=== PATIENT | male | born 1955 | race Caucasian/White ===

== ENCOUNTER → 2020-01-22 11:00 | Outpatient (BNVA) | payer MEDICARE, SELFPAY | PROVIDERS: Family Provider Family Medicine; PCP Family Medicine; Visit Provider Family Medicine | DX: I10 Essential (primary) hypertension (principal); E11.9 Type 2 diabetes mellitus without complications; L25.5 Unspecified contact dermatitis due to plants, except food | CPT/HCPCS: 80048; 83036 ==

== ENCOUNTER → 2021-01-20 09:50 | Outpatient (BNVA) | payer MEDICARE, SELFPAY | PROVIDERS: Family Provider Family Medicine; PCP Family Medicine; Visit Provider Nurse Practitioner Family | DX: E11.9 Type 2 diabetes mellitus without complications (principal); I10 Essential (primary) hypertension; Z13.6 Encounter for screening for cardiovascular disorders; E55.9 Vitamin D deficiency, unspecified | CPT/HCPCS: 80053; 80061; 82306; 83036; 84443 ==

== ENCOUNTER → 2022-04-13 11:38 | Outpatient (BNVA) | payer MEDICARE, SELFPAY | PROVIDERS: Family Provider Family Medicine; PCP Family Medicine; Visit Provider Nurse Practitioner | DX: I10 Essential (primary) hypertension (principal); E11.9 Type 2 diabetes mellitus without complications; E55.9 Vitamin D deficiency, unspecified | CPT/HCPCS: 80053; 80061; 83036; 84443; 85025 ==

== ENCOUNTER 2022-06-13 14:56 | Inpatient (IN) | payer MEDICARE, SELFPAY ==
[2022-06-13] VITALS (35 sets, daily range): BP systolic 93–136; BP diastolic 60–90; PULSE 76–122; RESP 15–35; TEMP 36.6–36.8; O2SAT 91–96; BMI 25.8
--- NOTE | 2022-06-13 15:02 | XRR_ITS ---
PROCEDURE INFORMATION: Exam: XR Chest Exam date and time: 06/13/2022 3:05 PM Age: 67 years old Clinical indication: Pain; Chest pressure; Additional info: Cp TECHNIQUE: Imaging protocol: Radiologic exam of the chest. Views: 1 view. COMPARISON: No relevant prior studies available. FINDINGS: Lungs: No consolidation. Pleural spaces: Unremarkable. No pleural effusion. No pneumothorax. Heart/Mediastinum: No cardiomegaly. Bones/joints: No acute findings. XR/XR chest 1V portable [id number] IMPRESSION: No acute findings.
--- NOTE | 2022-06-13 15:03 | ECG_ITS ---
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 Measurements Intervals Trevor Rate: 121 P: 53 WY: 156 QRS: -17 QRSD: 101 T: 78 QT: 329 QTc: 468 Interpretive Statements SINUS TACHYCARDIA NONSPECIFIC ST & T-WAVE ABNORMALITY INTERPRETATION BASED ON A DEFAULT AGE OF 40 YEARS No previous ECG available for comparison Electronically Signed On 06-14-2022 8:08:59 CDT by Aiden Thayer M.D. [email or web address]
--- NOTE | 2022-06-13 15:08 | W.ED.CHESTPA ---
HPI - Chest Pain General: Chief Complaint: Arrhythmia/Palpitations Stated Complaint: n/v, stemi alert Time Seen by Provider: 06/13/22 14:58 Source: patient and EMS Mode of arrival: EMS Limitations: no limitations History of Present Illness: This patient was transported to the emergency department by EMS. They were called to the scene by the family. The patient apparently was riding with family and became very nauseated and diaphoretic and lightheaded. He denied chest pain, shortness of breath. He denied headache or any neurologic symptoms at the time. Does have a history of diabetes and hypertension. He has no known history of coronary artery disease. Prior to arrival EMS completed twelve-lead EKG and transmitted that for review. They also given 324 mg of aspirin. He also received Zofran prior to arrival because of nausea. At arrival he states he has no chest pain and has no nausea at this time. He denies other constitutional complaints currently. Onset: during rest Associated symptoms: Reports diaphoresis and nausea; Deny abdominal pain, dyspnea, fever(s), palpitations, syncope or vomiting Treatment prior to arrival: aspirin and oxygen Risk Factors: Coronary artery disease risk factors: diabetes, smoking history and hypertension Review of Systems Const: Reports: diaphoresis; Denies: fever(s) or chills Eyes: Reports: blurry vision ENMT: Denies: throat pain, odynophagia, nasal discharge or nasal congestion Card: Reports: lightheadedness; Denies: chest pain, palpitations, irregular heart rhythm, edema, swelling of feet/ankles or syncope Resp: Denies: dyspnea, productive cough or non-productive cough GI: Reports: nausea; Denies: abdominal pain or vomiting : Denies: flank pain, difficulty urinating, dysuria or urinary frequency Musc: Denies: neck pain, back pain, extremity pain or extremity swelling Skin/Breast: Denies: rash or skin tenderness Neuro: Denies: headache(s), numbness in extremities, weakness in extremities, lack of coordination, dizziness, vertigo, confusion or Slurred speech present Psych: Denies: anxiety or depression Endo: Denies: polyuria or polydipsia Jorge/Lymph: Denies: easy bruising or easy bleeding [facility] PFSH: Medical History Hypertension Type 2 diabetes mellitus Social History Smoking and tobacco status: current every day smoker Alcohol intake: never Physical Exam Narrative: EXAM NARRATIVE: The patient is alert no acute distress. He makes good eye contact. Speaks in goal-directed sentences. Const: COMMON NORMALS: no acute distress, patient oriented x3 and healthy appearing GENERAL APPEARANCE: cooperative and comfortable HENMT: COMMON NORMALS: normocephalic, atraumatic, moist oral mucous membranes and oropharynx normal HEAD & SCALP: normocephalic and atraumatic FACE & SINUS: normal facial exam Eye: COMMON NORMALS: Equal, round and reactive pupils present, EOMs intact bilaterally and conjunctivae normal CONJUNCTIVA: Yes conjunctivae normal PUPIL: Yes Equal, round and reactive pupils present Neck/C-Spine: COMMON NORMALS: full ROM, no lymphadenopathy, no JVD, Thyroid normal and No carotid bruits THYROID: Thyroid normal Lymph: LYMPHATIC: no lymphadenopathy noted Chest: COMMONS NORMALS: normal inspection of the chest and normal palpation of entire chest wall Resp: COMMON NORMALS: normal respiratory effort, No retractions, No use of accessory muscles and clear to auscultation bilaterally EFFORT & INSPECTION: Yes able to speak in complete sentences AUSCULTATION: clear to auscultation bilaterally Cardio: COMMON NORMALS: no JVD, regular rate, regular rhythm, No murmurs present (Cardio) and Peripheral pulses 2+ throughout RATE: regular rate RHYTHM: regular rhythm PERIPHERAL PULSES: Peripheral pulses 2+ throughout GI: COMMON NORMALS: Normal to inspection, nondistended, normoactive bowel sounds present, Soft to palpation, non-tender and No hepatosplenomegaly present PALPATION: Yes Soft to palpation and Yes No hepatosplenomegaly present : COMMON NORMALS: Yes no CVA tenderness BLADDER/KIDNEY EXAM: Yes no CVA tenderness Back/Pelvis: COMMON NORMALS: no CVA tenderness, thoracic and lumbar spine normal to inspection, no thoracic nor lumbar tenderness and thoraco-lumbar ROM normal Extremity: COMMON NORMALS: normal to inspection, capillary refill normal, no calf tenderness and no pedal edema Neuro: COMMON NORMALS: patient oriented x3, moves all extremities, no focal motor deficits, no sensory deficits noted and deep tendon reflexes 2+ bilaterally SPEECH: speech normal Psych: COMMON NORMALS: mental status grossly normal and cooperative Skin: COMMON NORMALS: no rashes or lesions noted, no wounds, turgor normal and no jaundice GENERAL SKIN EXAM: no rashes or lesions noted and turgor normal Course ED course: Cardiology was notified prior to arrival. They arrived almost immediately after the patient arrived to the emergency department. A twelve-lead EKG was performed which showed some ST elevation in aVR as well as leads V1 and V2. No other acute changes noted at this time. No prior tracings available for review. Cardiology interviewed the patient reviewed tracings and discussed risks and benefits with the patient and it was decided that the patient would proceed to coronary angiogram to ensure that there was no obstructive coronary thrombus. Vital Signs: Vital signs: Vital Signs Temperature 98.2 F 06/13/22 14:57 Pulse Rate 122 H 06/13/22 14:57 Respiratory Rate 18 06/13/22 14:57 Blood Pressure 136/88 06/13/22 14:57 Pulse Oximetry 91 06/13/22 14:57 MDM - Chest Pain Medical Decision Making Patient with significant risk factors who presented with potentially angina equivalent symptoms with ST elevations in anterior leads suggestive of possible acute ST elevation [place]. Cardiology was consulted and decided to take to Apiculture Teacher for coronary angiogram. Stable at the time of transfer. Lab Data I reviewed the patient's lab results. : 06/13/22 15:00 06/13/22 15:00 Laboratory Results WBC 10.3 10^3/uL (4.0-10.0) H 06/13/22 15:00 RBC 6.18 10^6/uL (4.1-5.3) H 06/13/22 15:00 Hgb 18.6 g/dL (11.7-16.6) H 06/13/22 15:00 Hct 54.8 % (42.0-52.0) H 06/13/22 15:00 MCV 88.7 fl (80-94) 06/13/22 15:00 MCH 30.1 pg (28.0-34.0) 06/13/22 15:00 MCHC 33.9 g/dL (30.0-36.0) 06/13/22 15:00 RDW 12.7 % (12.1-15.1) 06/13/22 15:00 Plt Count 285 10^3/cmm (130-400) 06/13/22 15:00 MPV 9.8 fL (7.4-10.4) 06/13/22 15:00 Neut % (Auto) 67.6 % 06/13/22 15:00 Lymph % (Auto) 17.9 % 06/13/22 15:00 [place] % (Auto) 5.8 % 06/13/22 15:00 Eos % (Auto) 4.8 % 06/13/22 15:00 Baso % (Auto) 1.2 % 06/13/22 15:00 Neut # (Auto) 6.94 10^3/uL (1.8-7.7) 06/13/22 15:00 Lymph # (Auto) 1.8 10^3/uL (0.8-4.8) 06/13/22 15:00 [place] # (Auto) 0.6 10^3/uL (0.2-0.9) 06/13/22 15:00 Eos # (Auto) 0.5 10^3/uL (0.0-0.8) 06/13/22 15:00 Baso # (Auto) 0.1 10^3/uL (0.0-0.1) 06/13/22 15:00 Nucleated RBC % (auto) 0 % 06/13/22 15:00 Nucleated RBCs # 0.0 /100WBC 06/13/22 15:00 Imaging Data CXR: My impression: Chest x-ray showed mild cardiomegaly on a slightly rotated film. Clear lung velazquez were clear at this time. Discharge Plan Discharge Patient Disposition: Placed in Observation Clinical Impression: ACS (acute coronary syndrome), Type 2 diabetes mellitus, Hypertension Condition: Stable Coding Level of Care Code ED Framework Developer for Ronaldo Mejia
--- NOTE | 2022-06-13 15:18 | P.HP_ITS ---
Providers/Chief Complaint Primary Care Provider: Storm Khan MD Chief Complaint: n/v, stemi alert History of Present Illness Armando Irwin is a 67 year old male with past medical history of hypertension and diabetes who called EMS after having diaphoresis, nausea and vomiting. Also felt weak. EMS performed showed dynamic ST T wave changes in leads V1 to V3. STEMI alert was called. Patient denied significant chest discomfort. Does have mild dyspnea and cough Says he feels confused. Review of Systems Narrative: Has dyspneaCONSTITUTIONAL: No fever chills weight loss or gain or night sweats. [] HEENT: Normocephalic, atraumatic.[] RESPIRATORY: Has cough no sputum, hemoptysis or wheezing.[] CARDIOVASCULAR: Has shortness of breath, denies chest pain .has some nausea GI: Has nausea and vomiting SADDLE TREE STITCHER: No numbness, tingling, weakness or loss of function in any part of the body. [] MUSCULOSKELETAL: No knee or joint pain or rashes. [] Medications/Allergies Home Medications Medication Instructions Recorded Confirmed Last Taken Type aspirin 325 mg tablet 325 mg PO DAILY 01/22/20 04/15/22 Unknown History prenat.vits,ethan,ibf-lpzo-wmxny 1 tab PO DAILY #90 tab 01/23/21 04/15/22 Unknown Rx glimepiride 2 mg tablet See Rx Instructions .ROUTE 04/13/22 04/15/22 Unknown Rx .COMPLEX 90 Days #180 tab metformin 1,000 mg tablet See Rx Instructions .ROUTE 05/10/22 Unknown Rx .COMPLEX #60 tab lisinopril 20 See Rx Instructions .ROUTE 05/28/22 Unknown Rx mg-hydrochlorothiazide 12.5 mg .COMPLEX #30 tab tablet Allergies Allergy/AdvReac Type Severity Reaction Status Date / Time Penicillins AdvReac anaphylaxis Verified 04/15/22 09:56 PFSH Acute PFSH: Medical History (Updated 06/13/22 @ 17:36 by Barbi Marsh MD) History of MRSA infection Skin of back and right thigh, required surgery with skin grafting Hypertension Type 2 diabetes mellitus Surgical History (Updated 06/13/22 @ 17:36 by Barbi Marsh MD) History of skin graft Back and right thigh, secondary to MRSA skin infection Family History (Updated 06/13/22 @ 17:36 by Barbi Marsh MD) Son CAD (coronary artery disease) Other Diabetes Social History (Updated 06/13/22 @ 17:37 by Barbi Marsh MD) Smoking and tobacco status: current every day smoker Alcohol intake: former Substance/Drug Use: never Household members: spouse and family Marital status: Vitals/I&O/Wt Last Vital Signs Temp 98.2 F 06/13/22 14:57 Pulse 122 H 06/13/22 14:57 Resp 18 06/13/22 14:57 BP 136/88 06/13/22 14:57 Pulse Ox 91 06/13/22 14:57 Weight last 48 hrs Weight 165 lb Physical Exam Narrative: GENERAL: Patient is alert, awake and oriented x3. [] NECK: No jugular vein distension. [] HEENT: No cyanosis. No icterus. No pallor. [] HEART: Regular S1 and S2. No murmur, rub or gallop. [] LUNGS: Clear to auscultate bilaterally. [] ABDOMEN: Soft, nontender and nondistended. Positive bowel sounds. No guarding, rebound or tenderness. [] CENTRAL NERVOUS SYSTEM: Grossly nonfocal. [] EXTREMITIES: Lower extremities with 1+ edema bilaterally. Pulses palpable in the lower extremities, both dorsalis pedis and posterior tibial. [] Data : 06/13/22 15:00 06/13/22 15:00 A&P Assessment and plan (1) Hypertension: Status: Acute (2) Type 2 diabetes mellitus: Status: Acute (3) ST segment changes on electrocardiogram: Status: Acute Plan Patient has risk factors of hypertension and diabetes however has no significant CAD history. He did not give much history . STEMI was called from the field. He had symptoms of nausea and vomiting. EKG showed borderline dynamic ST changes in leads V1 to V3. Given his presentation, we decided to take him to the cardiac Wellness Program Administrator. Coronary angiogram showed occluded proximal to mid LAD and occluded proximal RCA. These appeared chronic. We did attempt to cross the totally occluded segments however wire would not cross. Further attempts were aborted.Medical managment for now. Initial troponin is 24. Will repeat 2 hour troponin. Continue aspirin and Plavix. He was given heparin. Order echocardiogram. Gentle IV fluids We will consult medicine team for helping with medical management. Appreciate input for medical management Attestations Medical Necessity Statement*: Care expected to cross 2 midnights. Patient has presented with dynamic EKG changes, nausea and vomitting. Has severe CAD. Will need further work-up. Coding Level of Care Code Acute Community Assistant for g Fwd Diagnoses Hypertension I10 Type [address] segment changes on electrocardiogram R94.31
--- NOTE | 2022-06-13 15:19 | XACV_ITS ---
Exam Room: 2 Ht: 170 cm Wt: 75 kg BSA: 1.89 m2 Gender: Male : 1955 Any Known Allergies: Penicillins Exam Priority: Routine Procedure(s): Procedure Description: Diagnostic procedure Procedure Description: Miscellaneous Procedure Description: ACT Procedure Description: Coronary Angiography Diagnostic Cath Status: Emergency Diagnostic Findings * Left Main has no significant disease. * Circumflex has mild luminal irregularities. In the distal vessel, circumflex artery has severe diffuse disease. 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 Circumflex artery supplying collateral blood supply to both LAD and RCA.. * Proximal Left Anterior Descending: total occlusion, SAIRA: 0 flow. LAD is proximally occluded after a medium sized diagonal artery. Prior to total occlusion, vessel is small caliber. Receives collateral blood supply from left circumflex artery.. * Proximal Right Coronary Artery: Chronic total occlusion, SAIRA: 0 flow. * INDICATION: 67 year old male with past medical history of hypertension and diabetes who called EMS after having diaphoresis, nausea and vomiting. Also felt weak. EMS performed showed dynamic ST T wave changes in leads V1 to V3. No clear ST elevation seen. Patient denied chest discomfort. Mild dyspnea and cough Says he feels confused. Market Development Trainer was emergently activated given dynamic EKG changes.. * First Obtuse Marginal Branch Segment: total occlusion, SAIRA: 0 flow. * Coronary angiography shows right dominance. PCI Status: Emergency PCI Indication: NSTE - ACS Interventional Findings * PROCEDURE DETAIL: We engaged left main artery with XB 3.0 guide catheter. After administering IV heparin to maintain ACT above 250 S, we advanced a run-through guidewire into the LAD. Wire would not cross the totally occluded segment. We then switched to Fielder XT. It could not cross the totally occluded segment even with the support from a microcatheter. We switched to marine pilot 50. It also could not be crossed. As patient was chest pain-free and had no clear ST elevations, we decided to abort further attempts at revascularization of the LAD as it appeared chronic total occlusion with collaterals from left system. We then briefly attempted to try wiring the RCA which also had total occlusion and proximal segment. It also appeared to be chronic total occlusion. Guidewires and guide catheters removed and patient left the Market Development Trainer in a stable condition.. Conclusions 1. Total occlusion of RCA and proximal LAD. 2. Wire could not be advanced and they appear chronic total occlusion with collateral supply 3. from left circumflex artery. As patient was chest pain-free 4. , we decided to abort further attempts at revascularization. 5. He was 6. transferred 7. to ICU in a stable condition 8. and dynamically stable.. Recommendations * Transfer to ICU. * We will treat as non-ST elevation AK * . Trend troponins. * Order echocardiogram. * Patient has guarded long-term prognosis given significant CAD. * We will consult medicine team for alternative diagnosis and medical management. Interventional RX Recommendation: medical therapy and/or counseling Diagnostic RX Recommendation: medical therapy and/or counseling Anticoagulation: Heparin Pressures Phase:Rest AO : 86 / 66 ( 77 ) @ 4:40:00 PM 80 / 61 ( 70 ) @ 4:47:00 PM 90 / 62 ( 74 ) @ 4:52:00 PM 96 / 82 ( 90 ) @ 4:58:00 PM 85 / 65 ( 75 ) @ 5:06:00 PM 95 / 75 ( 86 ) @ 5:24:00 PM Clinical Evaluation EBL: 5mL-10mL Procedural Details Pre-Procedure Time Out. Identified patient by full name and date of as verbalized by the patient/guarantor. Does the consent match the physician's order: N/A Emergent; Informed Consent not obtained due to time critical life threat. Accurate & Complete Informed Consent: N/A Emergent; Informed Consent not obtained due to time critical life threat. Inpatient/Outpatient History & Physical on Chart: N/A Emergent; Informed Consent not obtained due to time critical life threat. If H&P is completed, is and addenduem needed: N/A Emergent; Informed Consent not obtained due to time critical life threat; If yes, is the addendum complete: N/A Emergent; Informed Consent not obtained due to time critical life threat. Visualize and Verify Site with Patient/Guarantor: N/A. Relevant Radiology Images available: N/A Emergent; Informed Consent not obtained due to time critical life threat. Pre-op teaching completed and patient verbalized understanding. The risks, benefits, and alternatives of sedation and/or procedure were discussed by physician. The patient agrees to continue. Procedure started. [facility] Clinical Fraility Score: 3: Managing Well. Market Development Trainer Indications: ACS <= 24 hours. Chest Pain Symptom Assessment: Typical Angina Symptoms. Cardiovascular Instability: Yes, if yes, Persistant Ischemic Symptoms. Correct patient, site and procedure confirmed by cath team. Current diagnosis: NSTEMI. PERRLA. Strong, equal hand research phlebotomist bilaterally. Lungs clear x 5 lobes. A 18 gauge IV was started in the right anticubital using aseptic technique. A 18 gauge IV was started in the left anticubital using aseptic technique. IV Fluids: 0.9% NaCl at KVO. 0 mL infused prior to cath laboratory technician. Pre Procedural Pulses: bilateral radial was 3+. Oxygen started at 2liters/min via nasal canula. right groin was prepped with chloroprep then draped in the usual sterile fashion. right radial was prepped with chloroprep then draped in the usual sterile fashion. Physician notified. Baseline sample Acquired. HR: 126 BPM. Physician arrived. Physician scrubbed in. Immediate Pre-Procedure Time Out. Correct Patient: Yes; Correct Procedure: Yes; Correct Site: Yes; Correct Patient Position: Yes; Correct Supplies: Yes; Dried Flammable Prep: Yes; Blood Products Available: N/A;. Lidocaine 1% infiltrated to the right radial. Arterial access obtained. A 5 [place] TIG catheter in over the standard J wire. Catheter redirected to the LCA. Current Diagnosis : NSTEMI. Multiple views taken of left coronary artery. 260cm Exchange glidewire in. Catheter removed over the exchange glide wire. 6 [place] XB 3 guide catheter was inserted over the the exchange glidewire. Shelby guidewire was advanced through the guide catheter to lesion in the prox LAD, unable to cross. Shelby wire out, 300cm Runthrough guidewire in, unable to cross. Teleport Microcatheter in over the Runthrough guidewire. Teleport Microcatheter out over the Runthrough guidewrie. Fielder XT 180 cm guidewire was advanced through the guide catheter to lesion in the prox LAD, unable to cross. Multiple views taken of right coronary artery. Fielder XT guidewire out. Runthrough guidewire out. Standard J wire in. Standard J wire out. Servicenow Administrator 50 guidewire was advanced through the guide catheter to lesion in the prox LAD, unable to cross. 2.5 x 6 Mini Trek in and unable to cross. Servicenow Administrator 50 guidewire out. Guide catheter out over the exchange glidewire. 6 [place] JR 4 guide catheter was inserted over the exchange glidewire. Blood drawn and handed off to lab for stat Troponin by Kathryn Lopez RN. Exchange Glidewire out. ACT drawn. Results 188 seconds. Therapeutic limits - pre-heparin administration 90-150 seconds and monitoring heparin during a vascular procedure >250 seconds. An update was given to the Daughter, Alyse, via telephone by Avelino Mendoza RN, [facility]. Servicenow Administrator 50 guidewire was advanced through the guide catheter to lesion in the prox RCA, unable to cross. Guide catheter out over the exchange glidewire. Dr. Thayer scrubbed out. An update was given to the Daughter, Alyse, via telephone by Dr. Thayer. A TR Band was successful obtaining hemostatsis at the Right Radial artery insertion site. TR band placed. Hemostasis obtained. Post Procedure: Pulses reassessed and unchanged. PERRLA. Strong, equal hand research phlebotomist bilaterally. No VTE prophylaxis required. Medication's Wasted: Lidocaine 1% = 2 mL. Medication's Wasted: Nitro = 49.8 mg. Medication's Wasted: Heparin = 3000 units. Total IV fluids: 87 mL. Post-op diagnosis: NSTEMI with chronically occluded RCA and LAD. Complications: none. Estimated blood loss: 5mL-10mL. Responsiveness - Normal response to verbal stimuli; alert and oriented, PERRLA. Airway - Unaffected, no intervention required; spontaneous ventilation. Circulation: W/N/L, pulses unchanged. Nausea/Vomiting: No. Procedure completed. Patient transferred by wheelchair to ICU. Vital chart was stopped. Access Site Site: Right Radial artery Sheath Size: 6 Fr Hemostasis Method: TR Band Hemostasis Success: Successful Procedure Medications Start: 3:30 PM Stop: 3:30 PM Medication: Versed Amount: 1 mg Route: I.V. Start: 3:30 PM Stop: 3:30 PM Medication: Fentanyl Amount: 50 mcg Route: I.V. Start: 3:32 PM Stop: 3:32 PM Medication: Nitrogylcerin Amount: 200 mcg Route: I.A. Start: 3:36 PM Stop: 3:36 PM Medication: Heparin Amount: 5000 units Route: I.V. Start: 3:47 PM Stop: 3:47 PM Medication: Levophed (norepinephrine) Amount: 4 mcg/min Route: I.V. drip Start: 3:51 PM Stop: 3:51 PM Medication: Levophed (norepinephrine) Amount: 8 mcg/min Route: I.V. drip Start: 3:57 PM Stop: 3:57 PM Medication: Versed Amount: 1 mg Route: I.V. Start: 4:04 PM Stop: 4:04 PM Medication: Heparin Amount: 2000 units Route: I.V. Start: 4:22 PM Stop: 4:22 PM Medication: Heparin Amount: 1000 units Route: I.V. Start: 4:40 PM Stop: 4:40 PM Medication: Levophed (norepinephrine) Amount: 6 mcg/min Route: I.V. drip Start: 4:42 PM Stop: 4:42 PM Medication: Levophed (norepinephrine) Amount: 4 mcg/min Route: I.V. drbecky Carter, the attending physician, have reviewed and verified all procedure medications. Yes, all medications given per verbal order History/Risk Factors Hypertension: Yes Dyslipidemia: No Peripheral Arterial Disease (PAD): No Myocardial Infarction (AK): No Obesity: No Renal Disease: No Tobacco Use: Current/Recent(w/in 1 year) Prior Interventions PCI: No CABG: No Valve Surgery: No Report Signatures Finalized by Aiden Thayer MD on 06/23/2022 12:42 PM
[2022-06-13 15:20] LABS: Basophils # 0.1 10^3/uL (0.0-0.1); Basophils % 1.2 %; Eosinophils # 0.5 10^3/uL (0.0-0.8); Eosinophils % 4.8 %; Hematocrit 54.8 % (42.0-52.0); Hemoglobin 18.6 g/dL (11.7-16.6); Lymphocytes # 1.8 10^3/uL (0.8-4.8); Lymphocytes % 17.9 %; Mean Corpuscular HGB Conc 33.9 g/dL (30.0-36.0); Mean Corpuscular Hemoglobin 30.1 pg (28.0-34.0); Mean Corpuscular Volume 88.7 fl (80-94); Mean Platelet Volume 9.8 fL (7.4-10.4); Monocytes # 0.6 10^3/uL (0.2-0.9); Monocytes % 5.8 %; Neutrophils # 6.94 10^3/uL (1.8-7.7); Neutrophils % 67.6 %; Nucleated Red Blood Cells % 0 %; Platelet Count 285 10^3/cmm (130-400); Red Blood Count 6.18 10^6/uL (4.1-5.3); Red Cell Distribution Width 12.7 % (12.1-15.1); White Blood Count 10.3 10^3/uL (4.0-10.0)
[2022-06-13] MEDS: heparin 5,000 unit/mL INJ 1 mL 4000 UNIT INJECTION (15:20)
[2022-06-13] MEDS: clopidogrel 300 mg Tablet 600 MG PO (15:20)
[2022-06-13 15:46] LABS: Alanine Aminotransferase 35 U/L (0-41); Albumin Level 4.5 g/dL (3.5-5.2); Alkaline Phosphatase 81 IU/L (40-130); Anion Gap 18.7 (5-19); Aspartate Amino Transferase 23 U/L (0-40); Blood Urea Nitrogen 17 mg/dL (8-23); Calcium 9.2 mg/dL (8.5-10.5); Carbon Dioxide 22 mmol/L (22-29); Chloride 99 mmol/L (98-107); Globulin 2.5 g/dL (1.3-4.6); Glomerular Filtration Rate 54.7 mL/min (90-130); Glucose 321 mg/dL (65-115); Osmolality Calculated 296 mOsm/kg (285-295); Potassium 3.7 mmol/L (3.5-5.1); Sodium 136 mmol/L (136-145); Total Bilirubin 0.6 mg/dL (0.15-1.2)
[2022-06-13 15:47] LABS: Troponin(5th) Baseline 24 ng/L (0-15)
--- NOTE | 2022-06-13 17:02 | PC.NURSE ---
Arrived from laboratory chemist via , transferred self to bed. AO x4, no c/o. R wrist TR band clean dry intact.
--- NOTE | 2022-06-13 17:03 | ECG_ITS ---
[facility] Test Date: 2022-06-13 Pat Name: Armando rIwin Department: Room: [facility]05 Gender: Male Subgrade Tester: : 1955 Requested By: Edwardo Pratt Order Number: [id number] Carmen MD: Aiden Thayer M.D. Measurements Intervals [place] Rate: 100 P: 24 CA: 136 QRS: -40 QRSD: 116 T: 105 QT: 349 QTc: 451 Interpretive Statements SINUS TACHYCARDIA LEFT AXIS DEVIATION [QRS AXIS < -30] MODERATE INTRAVENTRICULAR CONDUCTION DELAY [110+ ms QRS DURATION] ST DEVIATION AND MODERATE T-WAVE ABNORMALITY, CONSIDER LATERAL ISCHEMIA [-0.1+ mV T-WAVE IN I/aVL/V5/V6] Compared to ECG 06/13/2022 14:53:30 Left-axis deviation now present Intraventricular conduction delay now present Possible ischemia now present T-wave abnormality still present Electronically Signed On 06-14-2022 18:13:28 CDT by Aiden Thayer M.D. [id number]
[2022-06-13 17:13] LABS: Troponin 5 2HR 50.54 ng/L (0-15)
[2022-06-13 17:19] LABS: Troponin 5 2HR Delta 26.54 ABS# (0-10)
--- NOTE | 2022-06-13 17:32 | P.CONIM_ITS ---
Providers/Reason For Consult Consulting Physician/Specialty*: Frase/Hosptialist Reason for Consult*: Diabetes, cough, elevated creatinine Requesting Physician: Dr. Thayer Attending Physician: Aiden Thayer M.D Primary Care Provider: Storm Khan MD History of Present Illness History of Present Illness Armando Irwin is a 67 year old male who presented to the emergency room via EMS with a complaint of sudden onset of being dizzy, diaphoretic, nauseated and lightheaded. He felt weak all over and could not think straight. EKG was checked in the field and demonstrated ST segment elevation in V1 to V3. Patient denied any associated chest pain. He is a known diabetic with hypertension. He was taken to Oil Well Drilling Manager and found to have chronic occlusions, none amendable percutaneous intervention. Patient was taken to the ICU postprocedure. Initial troponin was 24. 2-hour troponin at 54 delta of 26. Creatinine at 1.3 up from previously recorded values ranging from 1-1.2 dating back to 2019. Blood sugars were noted to be 320s. Hospitalist were consulted to evaluate further and assist in management. At the time of my evaluation patient is resting comfortably. He had a right radial approach. He is able to describe what happened. He says he was outside taking care of some things and thinks he may have gotten overheated. Symptoms came on suddenly. Has not had other similar events. Unclear if he or anyone else checked his blood sugar. Beyond diabetes and hypertension, he denies any known chronic medical issues. Has not personally had diagnosed coronary artery disease. He says his son of a heart attack in his late 30s. He does not recall any fevers. Has not had any recent diarrhea. Not currently nauseated and in fact states that he feels good. No numbness or paresthesias. Review of Systems Const: Reports: fatigue, malaise and diaphoresis; Denies: fever(s) or chills Eyes: Reports: blurry vision ENMT: Denies: throat pain or nasal congestion Card: Reports: palpitations, lightheadedness and dyspnea on exertion; Denies: chest pain or edema Resp: Reports: dyspnea and non-productive cough GI: Reports: nausea; Denies: abdominal pain, vomiting, diarrhea, constipation or hematochezia : Denies: difficulty urinating Musc: Reports: back pain Skin/Breast: Reports: pruritus (Sometimes), sores (Has some bug bites, has had a few tick bites) and other (Has skin grafts that utilize tissue); Denies: rash Neuro: Denies: headache(s), numbness in extremities, weakness in extremities or difficulty walking Psych: Denies: anxiety Jorge/Lymph: Denies: easy bruising or easy bleeding Medications/Allergies Home Medications Medication Instructions Recorded Confirmed Last Taken Type aspirin 325 mg tablet 325 mg PO DAILY 01/22/20 04/15/22 Unknown History prenat.vits,ethan,haj-ncxa-mjdnk 1 tab PO DAILY #90 tab 01/23/21 04/15/22 Unknown Rx glimepiride 2 mg tablet See Rx Instructions .ROUTE 04/13/22 04/15/22 Unknown Rx .COMPLEX 90 Days #180 tab metformin 1,000 mg tablet See Rx Instructions .ROUTE 05/10/22 Unknown Rx .COMPLEX #60 tab lisinopril 20 See Rx Instructions .ROUTE 05/28/22 Unknown Rx mg-hydrochlorothiazide 12.5 mg .COMPLEX #30 tab tablet Allergies Allergy/AdvReac Type Severity Reaction Status Date / Time Penicillins AdvReac anaphylaxis Verified 04/15/22 09:56 PFSH Acute PFSH: Medical History (Updated 06/14/22 @ 00:40 by Barbi Marsh MD) History of MRSA infection Skin of back and right thigh, required surgery with skin grafting Hypertension Type 2 diabetes mellitus Surgical History (Updated 06/13/22 @ 17:36 by Barbi Marsh MD) History of skin graft Back and right thigh, secondary to MRSA skin infection Family History (Updated 06/13/22 @ 17:36 by Barbi Marsh MD) Son CAD (coronary artery disease) Other Diabetes Social History (Updated 06/13/22 @ 17:37 by Barbi Marsh MD) Smoking and tobacco status: current every day smoker Alcohol intake: former Substance/Drug Use: never Household members: spouse and family Marital status: Vitals/I&O/Wt Last Vital Signs Temp 98.2 F 06/13/22 14:57 Pulse 119 H 06/13/22 15:10 Resp 16 06/13/22 15:10 BP 136/88 06/13/22 15:10 Pulse Ox 92 06/13/22 15:10 Weight last 48 hrs Weight 74.843 kg Physical Exam Narrative: Constitutional: Awake and alert, no acute distress HEENT: Normocephalic, atraumatic, pupils are equally reactive, arcus senilis is noted bilaterally, nasopharynx is clear, oropharynx with moist mucous membranes Neck: Supple Respiratory: Clear to auscultation bilaterally anteriorly Cardiovascular: Regular rate and rhythm, tachycardic, compression bandage in place to right wrist Abdomen: Soft, rotund, nontender, positive bowel sounds Extremities: Trace edema Neuro: Speech clear, face symmetric, handgrip equal, able to provide history elements Other: Skin is dry, scattered bug bites in different stages of healing Data : 06/13/22 15:00 06/13/22 15:00 Other Labs: Radiology Impressions Chest X-Ray 06/13/22 15:02 IMPRESSION: No acute findings. Laboratory Results WBC 10.3 10^3/uL (4.0-10.0) H 06/13/22 15:00 RBC 6.18 10^6/uL (4.1-5.3) H 06/13/22 15:00 Hgb 18.6 g/dL (11.7-16.6) H 06/13/22 15:00 Hct 54.8 % (42.0-52.0) H 06/13/22 15:00 MCV 88.7 fl (80-94) 06/13/22 15:00 MCH 30.1 pg (28.0-34.0) 06/13/22 15:00 MCHC 33.9 g/dL (30.0-36.0) 06/13/22 15:00 RDW 12.7 % (12.1-15.1) 06/13/22 15:00 Plt Count 285 10^3/cmm (130-400) 06/13/22 15:00 MPV 9.8 fL (7.4-10.4) 06/13/22 15:00 Neut % (Auto) 67.6 % 06/13/22 15:00 Lymph % (Auto) 17.9 % 06/13/22 15:00 Lane % (Auto) 5.8 % 06/13/22 15:00 Eos % (Auto) 4.8 % 06/13/22 15:00 Baso % (Auto) 1.2 % 06/13/22 15:00 Neut # (Auto) 6.94 10^3/uL (1.8-7.7) 06/13/22 15:00 Lymph # (Auto) 1.8 10^3/uL (0.8-4.8) 06/13/22 15:00 Lane # (Auto) 0.6 10^3/uL (0.2-0.9) 06/13/22 15:00 Eos # (Auto) 0.5 10^3/uL (0.0-0.8) 06/13/22 15:00 Baso # (Auto) 0.1 10^3/uL (0.0-0.1) 06/13/22 15:00 Nucleated RBC % (auto) 0 % 06/13/22 15:00 Nucleated RBCs # 0.0 /100WBC 06/13/22 15:00 Sodium 136 mmol/L (136-145) 06/13/22 15:00 Potassium 3.7 mmol/L (3.5-5.1) 06/13/22 15:00 Chloride 99 mmol/L (98-107) 06/13/22 15:00 Carbon Dioxide 22 mmol/L (22-29) 06/13/22 15:00 Anion Gap 18.7 (5-19) 06/13/22 15:00 BUN 17 mg/dL (8-23) 06/13/22 15:00 Creatinine 1.3 mg/dL (0.7-1.2) H 06/13/22 15:00 GFR Calculation 54.7 mL/min (90-130) L 06/13/22 15:00 Glucose 321 mg/dL (65-115) H 06/13/22 15:00 Calculated Osmolality 296 mOsm/kg (285-295) H 06/13/22 15:00 Calcium 9.2 mg/dL (8.5-10.5) 06/13/22 15:00 Total Bilirubin 0.6 mg/dL (0.15-1.2) 06/13/22 15:00 AST 23 U/L (0-40) 06/13/22 15:00 ALT 35 U/L (0-41) 06/13/22 15:00 Alkaline Phosphatase 81 IU/L (40-130) 06/13/22 15:00 Troponin T Baseline 24 ng/L (0-15) H 06/13/22 15:00 Troponin T 120 Minute 50.54 ng/L (0-15) H 06/13/22 16:34 Delta Troponin T 26.54 ABS# (0-10) H* 06/13/22 16:34 Total Protein 7.0 g/dL (6.6-8.7) 06/13/22 15:00 Albumin 4.5 g/dL (3.5-5.2) 06/13/22 15:00 Globulin 2.5 g/dL (1.3-4.6) 06/13/22 15:00 A&P Assessment and plan (1) ST segment changes on electrocardiogram: Status: Acute (2) Coronary artery chronic total occlusion: Status: Acute (3) Type 2 diabetes mellitus: Status: Chronic Qualifiers: Diabetes mellitus skilled nursing insulin use: without skilled nursing use Diabetes mellitus complication status: with circulatory complication Diabetes mellitus complication detail: with other circulatory complications Qualified Code(s): E11.59 - Type 2 diabetes mellitus with other circulatory complications (4) Hypertension: Status: Chronic Qualifiers: Hypertension type: primary hypertension Qualified Code(s): I10 - Esse ntial (primary) hypertension Plan Aspirin, Plavix, statin Heparin Check hemoglobin A1c and lipid panel Echocardiogram has been ordered Hold home lisinopril/HCTZ Sliding scale insulin currently Hold metformin secondary to contrast Hold glimepiride until taking consistent oral intake H2 newton Monitor for respiratory symptoms Supportive care otherwise Will follow along addressing medical issues Thank you very much for consultation Full code Coding Level of Care Code Acute Circuitry Negative Inspector for Ronaldo Mejia Diagnoses Type 2 diabetes mellitus E11.59 Diabetes mellitus exterminator helper insulin use: without skilled nursing use Diabetes mellitus complication status: with circulatory complication Diabetes mellitus complication detail: with other circulatory complications Hypertension I10 Hypertension type: primary hypertension ST segment changes on electrocardiogram R94.31 Coronary artery chronic total occlusion I25.82
--- NOTE | 2022-06-13 18:25 | PC.NURSE ---
Performed accucheck, patient's blood glucose is 258.
[2022-06-13 18:27] LABS: Glucose Point of Care 258 mg/dL (70-110)
[2022-06-13] MEDS: insulin lispro 100 unit/1 mL SUBCUT ×2 (18:29→20:40)
--- NOTE | 2022-06-13 20:13 | PC.NURSE ---
Due to bleeding, no air released from TR band during initial assessment. Per report, 13 mLs of air remain in balloon. Area cleaned so that bleeding can be better assessed.
[2022-06-13 20:33] LABS: Glucose Point of Care 167 mg/dL (70-110)
--- NOTE | 2022-06-13 21:21 | PC.NURSE ---
Addendum entered by Tiny Dooley RN 06/13/22 22:45: Remaining air removed from TR band. No bleeding or swelling noted. Addendum entered by Tiny Dooley RN 06/13/22 22:26: 2 mLs of air released from TR band. No bleeding or swelling at site. Addendum entered by Tiny Dooley RN 06/13/22 22:04: 2 mLs of air released from TR band at 2140 and 2200. No bleeding or swelling at site. Original Note: 1 mL of air released from TR band at 2030. 2 mL of air released from TR band at 2115. No bleeding or swelling noted at site.
[2022-06-13 21:31] LABS: Troponin 5 6HR 619.6 ng/L (0-15); Troponin 5 6HR Delta 595.6 ng/L (0-12)
--- NOTE | 2022-06-13 21:34 | PC.NURSE ---
Dr. Kothari notified of critical troponins via VOALTE. Pt diagnosed with STEMI and has been to optical laboratory manager. Pt feels good.
[2022-06-13] MEDS: acetaminophen 325 mg Tablet 650 MG PO (22:51)
[2022-06-14] VITALS (31 sets, daily range): BP systolic 92–140; BP diastolic 57–95; PULSE 69–98; RESP 8–26; TEMP 36.6; O2SAT 90–100
[2022-06-14] MEDS: sodium chloride 0.9% 1,000 ML 75 ML IV ×3 (00:50→18:35)
[2022-06-14] MEDS: heparin 5,000 unit/mL INJ 1 mL IV ×2 (01:02→20:58)
[2022-06-14] MEDS: heparin drip 25,000 UNIT/500 ML PREMIX 22 UNIT IV (01:03)
[2022-06-14 03:14] LABS: ABG PCO2 40.7 mmHg (35-45); ABG PH Result 7.36 (7.35-7.45); Base Excess ABG -2.4 mmol/L (-2.0-2.0); Blood Gas Allen Test Pos; Blood Gas Sample Site Radial, right; Blood Gas Sample Type Arterial; Oxygen Device ROOM AIR; PO2 ABG 85.3 mmHg (80.0-100.0)
--- NOTE | 2022-06-14 03:18 | PC.NURSE ---
Echo in progress.
[2022-06-14 05:34] LABS: Basophils # 0.1 10^3/uL (0.0-0.1); Basophils % 0.4 %; Eosinophils # 0.4 10^3/uL (0.0-0.8); Eosinophils % 3.4 %; Hematocrit 47.2 % (42.0-52.0); Hemoglobin 16.7 g/dL (11.7-16.6); Lymphocytes # 2.1 10^3/uL (0.8-4.8); Lymphocytes % 17.3 %; Mean Corpuscular HGB Conc 35.4 g/dL (30.0-36.0); Mean Corpuscular Hemoglobin 30.7 pg (28.0-34.0); Mean Corpuscular Volume 86.8 fl (80-94); Mean Platelet Volume 9.6 fL (7.4-10.4); Monocytes # 0.8 10^3/uL (0.2-0.9); Monocytes % 6.7 %; Neutrophils % 71.5 %; Nucleated Red Blood Cells % 0 %; Platelet Count 227 10^3/cmm (130-400); Red Blood Count 5.44 10^6/uL (4.1-5.3)
--- NOTE | 2022-06-14 05:54 | PC.NURSE ---
Left anterior lung velazquez more diminished than right.
[2022-06-14 06:06] LABS: Anion Gap 14.8 (5-19); Blood Urea Nitrogen 20 mg/dL (8-23); Calcium 8.4 mg/dL (8.5-10.5); Carbon Dioxide 23 mmol/L (22-29); Chloride 104 mmol/L (98-107); Chol HDL Ratio 4.57 mg/dL (1.0-5.00); Cholesterol 192 mg/dL (0-200); Glomerular Filtration Rate 50.2 mL/min (90-130); Glucose 77 mg/dL (65-115); HDL Cholesterol 42 mg/dL (60-100); LDL Cholesterol Calculated 130 mg/dL (50-129); Magnesium 1.6 mg/dL (1.7-2.3); NT Pro B Type Natriuretic Pept 2248 pg/mL (0-125); Osmolality Calculated 287 mOsm/kg (285-295); Phosphorus 4.2 mg/dL (2.5-4.5); Potassium 3.8 mmol/L (3.5-5.1); Sodium 138 mmol/L (136-145); Triglycerides 101 mg/dL (0-150)
[2022-06-14 06:14] LABS: Estmated Average Glucose 186; Hemoglobin A1C 8.1 % (4.0-6.0)
[2022-06-14 07:17] LABS: Glucose Point of Care 81 mg/dL (70-110)
[2022-06-14 07:29] LABS: Partial Thromboplastin Time 107.9 SECONDS (23.9-36.7)
--- NOTE | 2022-06-14 07:56 | PM.PN ---
Subjective Subjective: Patient had presented with atypical symptoms of weakness and nausea. Currently treated as NSTEMI. He doesnt have chest pain. He is vitally stable Vitals/I&O/Wt Last Vital Signs Temp 98 F 06/13/22 23:54 Pulse 76 06/14/22 06:00 Resp 16 06/14/22 05:30 BP 116/73 06/14/22 05:30 Pulse Ox 95 06/14/22 05:30 06/13/22 06/14/22 06/14/22 22:59 06:59 14:59 Intake Total 240 / 240 382.5 / 622.5 Output Total 350 / 350 Balance -110 / -110 382.5 / 272.5 Weight last 48 hrs Weight 171 lb 14.4 oz Weight 170 lb 12.8 oz Weight 165 lb Physical Exam Narrative: GENERAL: Patient is alert, awake and oriented x3. [] NECK: No jugular vein distension. [] HEENT: No cyanosis. No icterus. No pallor. [] HEART: Regular S1 and S2. No murmur, rub or gallop. [] LUNGS: Clear to auscultate bilaterally. [] ABDOMEN: Soft, nontender and nondistended. Positive bowel sounds. No guarding, rebound or tenderness. [] CENTRAL NERVOUS SYSTEM: Grossly nonfocal. [] EXTREMITIES: Lower extremities with 1+ edema bilaterally. Pulses palpable in the lower extremities, both dorsalis pedis and posterior tibial. 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 He did not give much history . STEMI was called from the field. He had symptoms of nausea and vomiting. EKG showed borderline dynamic ST changes in leads V1 to V3. Given his presentation, we decided to take him to the cardiac Cis Coordinator. Coronary angiogram showed occluded proximal to mid LAD and occluded proximal RCA. These appeared chronic. We did attempt to cross the totally occluded segments however wire would not cross. Further attempts were aborted.Medical managment for now. 6-hour troponin did go up consistent with non-ST elevation OK. Continue aspirin and Plavix. Heparin drip for 48 hours Echocardiogram pending. Gentle IV fluids Medicine team consulted for help with medical issues. Appreciate recommendations. Attestations Medical Necessity Statement*: Care expected to cross 2 midnights. Patient has NSTEMI. Medical therapy as has no revascularization targets. Coding Level of Care Code Acute Administrative Asst for [facility] Fwd Diagnoses Hypertension I10 Hypertension type: primary hypertension Type 2 diabetes mellitus E11.59 Diabetes mellitus nursing home insulin use: without nursing home use Diabetes mellitus complication status: with circulatory complication Diabetes mellitus complication detail: with other circulatory complications ST segment changes on electrocardiogram R94.31 NSTEMI (non-ST elevated myocardial infarction) I21.4
[2022-06-14] MEDS: aspirin 81 mg EC Tablet PO (08:17)
[2022-06-14] MEDS: famotidine 20 mg Tablet PO ×2 (08:17→17:32)
[2022-06-14] MEDS: clopidogrel 75 mg Tablet PO (08:17)
[2022-06-14] MEDS: magnesium sulfate premix 2 GM/50 ML PIGGYBACK IV (09:19)
--- NOTE | 2022-06-14 09:39 | PC.CHAP ---
Pastoral Care Encounter/Spiritual Assessment Type of Contact [] Declined batch analyst visit [] Patient/Family/Request visit [] Outpatient visit [] Follow-up visit [] Physician referral [] Code/Alert [x] Routine visit [] Staff referral [] Actively dying [x] Patient sleeping [] Family support [] [] Out of room [] Palliative care [] [] Receiving care in room [] Pre-surgical visit [] Trauma [] Long length of stay [x] ICU visit [] Other: Relational/Emotional Strength [] Patient feels connected with others/family/visitors/staff [] Distress [] Loneliness/isolation [] Abandonment Spirituality of Patient [] Person of Nita [] Attends Episcopal of their Nita [] Believes in Prayer [] Reads Bible or Pentecostalism materials [] There are Spiritual issues to be addressed Recreation Professor Interventions [x] Prayer [] Active listening [] Non-anxious presence [] Spiritual/emotional support [] Crisis/trauma care [] Spiritual counseling [] Bereavement support [] Provided bereavement packet [] Provided Bible/devotional materials [] Provided toy/stuffed animal, coloring book to patient or family member [] Provided Communion [] Anointing/[place] [] Salvation [x] Completed spiritual assessment [] Other: Impact on Illness or Injury [] Angry [] Fearful [] Anxious [] Often cries [] Exhaustion [] Unable to work [] Unable to attend denominational [] Unable to walk/stand [] Unable to read [] Unable to drive [] Unable to eat/drink [] Unable to sleep [] Unable to be with family [] Patient intubated [] Other: Summary Time spent with patient
--- NOTE | 2022-06-14 10:00 | ECG_ITS ---
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 Measurements Intervals [place] Rate: 84 P: 37 DC: 152 QRS: -7 QRSD: 102 T: 100 QT: 387 QTc: 459 Interpretive Statements SINUS RHYTHM MODERATE T-WAVE ABNORMALITY, CONSIDER ANTERIOR ISCHEMIA [-0.1+ mV T-WAVE IN V3/V4] Compared to ECG 06/13/2022 17:54:06 Sinus tachycardia no longer present Left-axis deviation no longer present Intraventricular conduction delay no longer present T-wave abnormality still present Possible ischemia still present Electronically Signed On 06-14-2022 18:09:02 CDT by Aiden Thayer M.D. [id number]
[2022-06-14 11:32] LABS: Glucose Point of Care 153 mg/dL (70-110)
[2022-06-14] MEDS: insulin lispro 100 unit/1 mL SUBCUT ×3 (11:38→20:56)
--- NOTE | 2022-06-14 16:01 | PM.PN ---
Subjective Subjective: Seen this AM. No acute events overnight. Vitals/I&O/Wt Last Vital Signs Temp 98 F 06/13/22 23:54 Pulse 89 06/14/22 14:00 Resp 16 06/14/22 05:30 BP 116/73 06/14/22 05:30 Pulse Ox 95 06/14/22 11:46 06/14/22 06/14/22 06/14/22 06:59 14:59 22:59 Intake Total 382.5 / 622.5 759.867 / 759.867 Output Total 300 / 300 Balance 382.5 / 272.5 459.867 / 459.867 Weight last 48 hrs Weight 77.973 kg Weight 77.474 kg Weight 74.843 kg Physical Exam Narrative: Constitutional: Awake and alert, no acute distress HEENT: Normocephalic, atraumatic, pupils are equally reactive, nasopharynx is clear, oropharynx with moist mucous membranes Respiratory: Clear to auscultation bilaterally anteriorly Cardiovascular: Regular rate and rhythm, normal s1, s2, compression bandage in place to right wrist Abdomen: Soft, rotund, nontender, positive bowel sounds Extremities: Trace edema Other: Skin is dry, scattered bug bites in different stages of healing Data : 06/14/22 04:39 06/14/22 04:39 A&P Assessment and plan (1) NSTEMI (non-ST elevated myocardial infarction): Status: Acute (2) Type 2 diabetes mellitus: Status: Chronic Qualifiers: Diabetes mellitus 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 medical 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 insulin use: without 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 medical terminology use Diabetes mellitus complication status: with circulatory complication Diabetes mellitus complication detail: with other circulatory complications Qualified Code(s): E11.59 - Type 2 diabetes mellitus with other circulatory complications (3) Hypertension: Status: Chronic Qualifiers: Hypertension type: primary hypertension Qualified Code(s): I10 - Essential (primary) hypertension (4) ST segment changes on electrocardiogram: Status: Acute (5) Coronary artery chronic total occlusion: Status: Acute Plan #ACS, chest pain, STEMI #Diabetes Mellitus #HTN - s/p angiogram, has STORE MANAGER RCA + LTO - Aspirin, plavix, statin - HbA1c 8.1, lipid panel ordered - Hold lisinopril/HCTZ - SSI to be continued - Hold metformin for 48 hours - Hold glimepiride for now Full Code DVT PPX:Continue heparin ip Attestations Medical Necessity Statement*: Defer to primary team Coding Level of Care Code Acute Hemmer Automatic for Chg Fwd Diagnoses NSTEMI (non-ST elevated myocardial infarction) I21.4 Type 2 diabetes mellitus E11.59 Diabetes mellitus mcfp insulin use: without 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 medical terminology use Diabetes mellitus complication status: with circulatory complication Diabetes mellitus complication detail: with other circulatory complications Hypertension I10 Hypertension type: primary hypertension ST segment changes on electrocardiogram R94.31 Coronary artery chronic total occlusion I25.82
--- NOTE | 2022-06-14 17:04 | USCV_ITS ---
Dc, Armando Age: 67 Gender: M : 1955 Exam Date: 06/14/2022 03:15 Ordering Phys: Aiden Thayer M.D ([email or web address]) Technologist: Anjum Mcfarlane [place] [facility] [place] BP: 100 / 67 HR: 73 Rhythm: Sinus Technical Quality: Adequate MEASUREMENTS (Male / Female) Normal Values 2D ECHO LV Diastolic Diameter PLAX 4.2 cm 4.2 - 5.9 / 3.9 - 5.3 cm LV Systolic Diameter PLAX 3.5 cm IVS Diastolic Thickness 1.4 cm 0.6 - 1.0 / 0.6 - 0.9 cm IVS Systolic Thickness 1.4 cm LVPW Diastolic Thickness 1.1 cm 0.6 - 1.0 / 0.6 - 0.9 cm LVPW Systolic Thickness 1.6 cm LVOT Diameter 2.0 cm LV Ejection Fraction 2D Teich 22.7 % LV Ejection Fraction MOD 2C 44.1 % LV Ejection Fraction 2C AL 43.9 % LA Diameter 3.3 cm LA Width 3.3 cm LA Height 4.7 cm RA Width 4.1 cm RA Height 4.0 cm Aorta at Sinotubular Diameter 3.4 cm IVC Diameter 2.2 cm M-MODE Aortic Annulus Diameter 3.1 cm LA Ao Ratio MM 1.1 MV E Point Septal Separation 0.9 cm DOPPLER AV Peak Velocity 107.7 cm/s LVOT Peak Velocity 74.0 cm/s AV Area Cont Eq vti 2.0 cm squared AV Area Cont Eq pk 2.1 cm squared MV Area PHT 5.0 cm squared Mitral E to A Ratio 0.8 MV E' Velocity 37.0 cm/s Mitral E to MV E' Ratio 12.8 Mitral E to LV E' Lateral Ratio 13.3 Mitral E to LV E' Septal Ratio 12.4 TR Peak Velocity 116.3 cm/s TR Peak Gradient 5.4 mmHg TR Mean Velocity 74.0 cm/s TR Mean Gradient 2.6 mmHg TR Velocity Time Integral 23.0 cm Right Atrial Pressure 3.0 mmHg Pulmonary Artery Systolic Pressu 8.4 mmHg PV Peak Velocity 74.7 cm/s FINDINGS Left Ventricle Normal left ventricular size. LV systolic function is moderately reduced with EF of 35-40%. Regional wall motion abnormalities are not accurately assessed because of poor ultrasonic windows. Grade 1 diastolic dysfunction is seen. Right Ventricle The right ventricle is normal in size and function. Right Atrium The right atrium is normal in size. Left Atrium The left atrium is normal in size. Mitral Valve Structurally normal mitral valve without significant stenosis or prolapse. There is trace mitral regurgitation. Aortic Valve Grossly normal. No significant stenosis. There is no aortic regurgitation. Tricuspid Valve Grossly normal. Trace tricuspid regurgitation. Pulmonic Valve Not well-visualized Pericardium Normal pericardium without effusion. Aorta Normal ascending aorta dimension. IVC CONCLUSIONS LV systolic function is moderately reduced with EF of 35 to 40%. Grade 1 diastolic dysfunction Trace mitral regurgitation Trace tricuspid regurgitation No comparison studies are available Aiden Thayer MD (Electronically Signed) Final Date: 14 June 2022 18:52 S
[2022-06-14 17:28] LABS: Glucose Point of Care 175 mg/dL (70-110)
[2022-06-14 19:19] LABS: Add Urine Microscopic? NO; Charge for UA Resulting for Rev
[2022-06-14 19:32] LABS: Ketones Urine Negative (Negative); Protein Urine Neg (Negative); Urine Appearance Clear (CLEAR); Urine Color Yellow (Yellow); pH Urine 6 (5-7)
[2022-06-14 19:33] LABS: Bilirubin Urine Neg (Negative); Blood Urine Neg (Negative); Glucose Urine UA 2+ (Normal); Leukocyte Esterase Urine Negative (Negative); Nitrate Urine Negative (Negative); Urobilinogen Urine Norm (Negative)
[2022-06-14 19:49] LABS: Partial Thromboplastin Time 47.2 SECONDS (23.9-36.7)
[2022-06-14] MEDS: atorvastatin 40 mg Tablet PO (20:51)
[2022-06-14 22:00] LABS: Glucose Point of Care 210 mg/dL (70-110)
[2022-06-15] VITALS (24 sets, daily range): BP systolic 114–158; BP diastolic 67–106; PULSE 77–112; RESP 18–27; TEMP 36.7–36.8; O2SAT 92–98
[2022-06-15] MEDS: heparin drip 25,000 UNIT/500 ML PREMIX 21 UNIT IV (02:31)
[2022-06-15 03:39] LABS: Partial Thromboplastin Time 54.9 SECONDS (23.9-36.7)
[2022-06-15] MEDS: heparin 5,000 unit/mL INJ 1 mL IV (04:08)
[2022-06-15 08:41] LABS: Glucose Point of Care 177 mg/dL (70-110)
[2022-06-15] MEDS: famotidine 20 mg Tablet PO ×2 (09:23→17:51)
[2022-06-15] MEDS: aspirin 81 mg EC Tablet PO (09:23)
[2022-06-15] MEDS: clopidogrel 75 mg Tablet PO (09:23)
[2022-06-15] MEDS: insulin lispro 100 unit/1 mL SUBCUT ×4 (09:24→21:33)
[2022-06-15] MEDS: ondansetron 2 mg/ML SDV 2 mL 4 MG IVP (09:55)
--- NOTE | 2022-06-15 10:13 | PC.CHAP ---
Pastoral Care Encounter/Spiritual Assessment Type of Contact [] Declined import and export clerk visit [] Patient/Family/Request visit [] Outpatient visit [] Follow-up visit [] Physician referral [] Code/Alert [x] Routine visit [] Staff referral [] Actively dying [] Patient sleeping [] Family support [] [] Out of room [] Palliative care [] [x] Receiving care in room [] Pre-surgical visit [] Trauma [] Long length of stay [x] ICU visit [] Other: Relational/Emotional Strength [] Patient feels connected with others/family/visitors/staff [] Distress [] Loneliness/isolation [] Abandonment Spirituality of Patient [] Person of Nita [] Attends Mormonism of their Nita [] Believes in Prayer [] Reads Bible or Sikh materials [] There are Spiritual issues to be addressed Photo Technician Interventions [x] Prayer [] Active listening [] Non-anxious presence [] Spiritual/emotional support [] Crisis/trauma care [] Spiritual counseling [] Bereavement support [] Provided bereavement packet [] Provided Bible/devotional materials [] Provided toy/stuffed animal, coloring book to patient or family member [] Provided Communion [] Anointing/[place] [] Salvation [x] Completed spiritual assessment [] Other: Impact on Illness or Injury [] Angry [] Fearful [] Anxious [] Often cries [] Exhaustion [] Unable to work [] Unable to attend evangelical [] Unable to walk/stand [] Unable to read [] Unable to drive [] Unable to eat/drink [] Unable to sleep [] Unable to be with family [] Patient intubated [] Other: Summary Time spent with patient
--- NOTE | 2022-06-15 10:42 | PM.PN ---
Subjective Subjective: Patient is feeling nauseous. No chest pain or shortness of breath. Vitals/I&O/Wt Last Vital Signs Temp 98.3 F 06/15/22 00:00 Pulse 100 06/15/22 08:00 Resp 21 H 06/15/22 00:00 BP 137/86 06/15/22 00:00 Pulse Ox 94 06/15/22 08:00 06/14/22 06/15/22 06/15/22 22:59 06:59 14:59 Intake Total 1656.233 / 2416.100 258.55 / 2674.650 Output Total 300 / 600 1375 / 1975 Balance 1356.233 / 1816.100 -1116.45 / 699.650 Weight last 48 hrs Weight 166 lb 6.4 oz Weight 171 lb 14.4 oz Weight 170 lb 12.8 oz Weight 165 lb Physical Exam Narrative: GENERAL: Patient is alert, awake and oriented x3. [] NECK: No jugular vein distension. [] HEENT: No cyanosis. No icterus. No pallor. [] HEART: Regular S1 and S2. No murmur, rub or gallop. [] LUNGS: Clear to auscultate bilaterally. [] ABDOMEN: Soft, nontender and nondistended. Positive bowel sounds. No guarding, rebound or tenderness. [] CENTRAL NERVOUS SYSTEM: Grossly nonfocal. [] EXTREMITIES: Lower extremities with 1+ edema bilaterally. Pulses palpable in the lower extremities, both dorsalis pedis and posterior tibial. [] Data : 06/15/22 10:38 06/15/22 10:38 A&P Assessment and plan (1) Hypertension: Status: Chronic Qualifiers: Hypertension type: primary hypertension Qualified Code(s): I10 - Essential (primary) hypertension (2) Type 2 diabetes mellitus: Status: Chronic Qualifiers: Diabetes mellitus exterminator insulin use: without senior living use Diabetes mellitus complication status: with circulatory complication Diabetes mellitus complication detail: with other circulatory complications Qualified Code(s): E11.59 - Type 2 diabetes mellitus with other circulatory complications (3) ST segment changes on electrocardiogram: Status: Acute (4) NSTEMI (non-ST elevated myocardial infarction): Status: Acute Plan Patient has risk factors of hypertension and diabetes however has no significant CAD history. He did not give much history . STEMI was called from the field. He had symptoms of nausea and vomiting. EKG showed borderline dynamic ST changes in leads V1 to V3. Given his presentation, we decided to take him to the cardiac Automotive Technician. Coronary angiogram showed occluded proximal to mid LAD and occluded proximal RCA. These appeared chronic. We did attempt to cross the totally occluded segments however wire would not cross. Further attempts were aborted.Medical managment for now. 6-hour troponin did go up consistent with non-ST elevation [place]. Continue aspirin and Plavix. Will stop anticoagulation later today. Echo demonstrates moderately reduced LV systolic function of 35- 40%. We will repeat limited echo with contrast to accurately assess EF as that will determine if he needs ICD/lifevest at time of discharge Medicine team consulted for help with medical issues. Appreciate recommendations. Attestations Medical Necessity Statement*: Care expected to cross 2 midnights Coding Level of Care Code Acute Intake Coordinator for [facility] Fwd Diagnoses Hypertension I10 Hypertension type: primary hypertension Type 2 diabetes mellitus E11.59 Diabetes mellitus exterminator insulin use: without exterminator use Diabetes mellitus complication status: with circulatory complication Diabetes mellitus complication detail: with other circulatory complications ST segment changes on electrocardiogram R94.31 NSTEMI (non-ST elevated myocardial infarction) I21.4
[2022-06-15 10:56] LABS: Basophils # 0.1 10^3/uL (0.0-0.1); Basophils % 0.8 %; Eosinophils # 0.5 10^3/uL (0.0-0.8); Eosinophils % 4.9 %; Hematocrit 54.1 % (42.0-52.0); Hemoglobin 18.9 g/dL (11.7-16.6); Lymphocytes # 1.6 10^3/uL (0.8-4.8); Lymphocytes % 15.4 %; Mean Corpuscular HGB Conc 34.9 g/dL (30.0-36.0); Mean Corpuscular Hemoglobin 30.9 pg (28.0-34.0); Mean Corpuscular Volume 88.4 fl (80-94); Mean Platelet Volume 9.4 fL (7.4-10.4); Monocytes # 0.7 10^3/uL (0.2-0.9); Monocytes % 6.6 %; Neutrophils # 7.22 10^3/uL (1.8-7.7); Neutrophils % 71.6 %; Nucleated Red Blood Cells % 0 %; Platelet Count 213 10^3/cmm (130-400); Red Blood Count 6.12 10^6/uL (4.1-5.3); White Blood Count 10.1 10^3/uL (4.0-10.0)
[2022-06-15 11:03] LABS: Partial Thromboplastin Time 69.7 SECONDS (23.9-36.7)
[2022-06-15 11:10] LABS: Glucose Point of Care 162 mg/dL (70-110)
[2022-06-15 11:28] LABS: Alanine Aminotransferase 42 U/L (0-41); Albumin Level 3.8 g/dL (3.5-5.2); Alkaline Phosphatase 75 IU/L (40-130); Aspartate Amino Transferase 64 U/L (0-40); Blood Urea Nitrogen 15 mg/dL (8-23); Calcium 8.9 mg/dL (8.5-10.5); Carbon Dioxide 22 mmol/L (22-29); Chloride 101 mmol/L (98-107); Globulin 2.8 g/dL (1.3-4.6); Glomerular Filtration Rate 74.1 mL/min (90-130); Glucose 191 mg/dL (65-115); Osmolality Calculated 286 mOsm/kg (285-295); Sodium 135 mmol/L (136-145); Total Bilirubin 0.7 mg/dL (0.15-1.2); Total Protein 6.6 g/dL (6.6-8.7)
--- NOTE | 2022-06-15 12:49 | PM.PN ---
Subjective Subjective: seen this am. no acute events overnight Vitals/I&O/Wt Last Vital Signs Temp 98.3 F 06/15/22 00:00 Pulse 100 06/15/22 08:00 Resp 21 H 06/15/22 00:00 BP 137/86 06/15/22 00:00 Pulse Ox 94 06/15/22 08:00 06/14/22 06/15/22 06/15/22 22:59 06:59 14:59 Intake Total 1656.233 / 2416.100 258.55 / 2674.650 400 / 400 Output Total 300 / 600 1375 / 1975 275 / 275 Balance 1356.233 / 1816.100 -1116.45 / 699.650 125 / 125 Weight last 48 hrs Weight 75.478 kg Weight 77.973 kg Weight 77.474 kg Weight 74.843 kg Physical Exam Narrative: Constitutional: Awake and alert, no acute distress HEENT: Normocephalic, atraumatic, pupils are equally reactive, nasopharynx is clear, oropharynx with moist mucous membranes Respiratory: Clear to auscultation bilaterally anteriorly Cardiovascular: Regular rate and rhythm, normal s1, s2, compression bandage in place to right wrist Abdomen: Soft, rotund, nontender, positive bowel sounds Extremities: Trace edema Other: Skin is dry, scattered bug bites in different stages of healing Data : 06/15/22 10:38 06/15/22 10:38 A&P Assessment and plan (1) NSTEMI (non-ST elevated myocardial infarction): Status: Acute (2) Hypertension: Status: Chronic Qualifiers: Hypertension type: primary hypertension Qualified Code(s): I10 - Essential (primary) hypertension (3) ST segment changes on electrocardiogram: Status: Acute (4) Coronary artery chronic total occlusion: Status: Acute (5) Type 2 diabetes mellitus: Status: Chronic Qualifiers: Diabetes mellitus group home insulin use: without group home use Diabetes mellitus complication status: with circulatory complication Diabetes mellitus complication detail: with other circulatory complications Qualified Code(s): E11.59 - Type 2 diabetes mellitus with other circulatory complications Plan #ACS, STEMI #Diabetes Mellitus #HTN -?s/p angiogram, 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 LDL 130, HDL 42 - Hold lisinopril/HCTZ - SSI to be continued for now - Hold metformin for 48 hours - Hold glimepiride for now, on SSI - At discharge, will send on metformin 1000 bid and home medication glimepiride 2 mg bid. Patient has never had hypoglycemic episodes with it. He will need to follow with primary care thereafter. Full Code DVT PPX: SCDS, on heparin drip Attestations Medical Necessity Statement*: Defer to primary team Coding Level of Care Code Acute Edge Cutter for [facility] Fwd Diagnoses NSTEMI (non-ST elevated myocardial infarction) I21.4 Hypertension I10 Hypertension type: primary hypertension ST segment changes on electrocardiogram R94.31 Coronary artery chronic total occlusion I25.82 Type 2 diabetes mellitus E11.59 Diabetes mellitus group home insulin use: without termite control servicer use Diabetes mellitus complication status: with circulatory complication Diabetes mellitus complication detail: with other circulatory complications
[2022-06-15] MEDS: metoprolol tartrate 25 mg Tablet PO ×2 (13:14→21:32)
[2022-06-15 16:58] LABS: Glucose Point of Care 216 mg/dL (70-110)
[2022-06-15 17:24] LABS: Partial Thromboplastin Time 56.6 SECONDS (23.9-36.7)
--- NOTE | 2022-06-15 17:35 | PC.NURSE ---
SHift summary: patient has rested in bed most of the day, but has been up to a chair for breakfast, lunch, and dinner. Heparin has remained at 23ml/hr and has not needed to be titrated per protocol. Only 275 mL of urine has been charted, but this is inaccurate as patient has gotten up frequently to use the bathroom.
[2022-06-15] MEDS: atorvastatin 40 mg Tablet PO (21:32)
[2022-06-15 22:16] LABS: Glucose Point of Care 299 mg/dL (70-110)
[2022-06-15 22:53] LABS: Partial Thromboplastin Time 71.8 SECONDS (23.9-36.7)
--- NOTE | 2022-06-16 00:55 | USCV_ITS ---
Blink, Armando Age: 67 Gender: M : 1955 Exam Date: 06/16/2022 02:01 Ordering Phys: Aiden Thayer M.D ([email or web address]) Technologist: JEAN-PIERRE [place] [facility] [place]: [employer] f/u exam of 06/14/2022 BP: 139 / 72 HR: 63 Rhythm: Sinus Technical Quality: Adequate with [employer] MEASUREMENTS (Male / Female) Normal Values FINDINGS Left Ventricle Right Ventricle Right Atrium Left Atrium Mitral Valve Aortic Valve Tricuspid Valve Pulmonic Valve Pericardium Aorta IVC CONCLUSIONS This is limited echocardiogram performed to assess LV systolic function. LV systolic function is moderate to severely reduced with EF of 30-35%. Severe hypokinesis of the apical wall normal anteroseptal and anterior ryder. Aiden Thayer MD (Electronically Signed) Final Date: 16 June 2022 07:23 S
[2022-06-16] MEDS: heparin drip 25,000 UNIT/500 ML PREMIX 23 UNIT IV (02:04)
[2022-06-16 05:18] LABS: Basophils # 0.1 10^3/uL (0.0-0.1); Basophils % 1.2 %; Eosinophils # 0.7 10^3/uL (0.0-0.8); Eosinophils % 6.9 %; Hematocrit 51.3 % (42.0-52.0); Hemoglobin 18.1 g/dL (11.7-16.6); Lymphocytes # 2.3 10^3/uL (0.8-4.8); Lymphocytes % 24.1 %; Mean Corpuscular HGB Conc 35.3 g/dL (30.0-36.0); Mean Corpuscular Hemoglobin 30.6 pg (28.0-34.0); Mean Corpuscular Volume 86.8 fl (80-94); Mean Platelet Volume 9.6 fL (7.4-10.4); Monocytes # 0.8 10^3/uL (0.2-0.9); Neutrophils # 5.64 10^3/uL (1.8-7.7); Neutrophils % 59.1 %; Nucleated Red Blood Cells % 0 %; Platelet Count 216 10^3/cmm (130-400); Red Blood Count 5.91 10^6/uL (4.1-5.3); Red Cell Distribution Width 12.9 % (12.1-15.1); White Blood Count 9.5 10^3/uL (4.0-10.0)
[2022-06-16 05:29] LABS: Partial Thromboplastin Time 58.3 SECONDS (23.9-36.7)
[2022-06-16 05:41] LABS: Anion Gap 15.4 (5-19); Blood Urea Nitrogen 16 mg/dL (8-23); Carbon Dioxide 25 mmol/L (22-29); Chloride 100 mmol/L (98-107); Glomerular Filtration Rate 66.4 mL/min (90-130); Glucose 155 mg/dL (65-115); Magnesium 1.7 mg/dL (1.7-2.3); Osmolality Calculated 286 mOsm/kg (285-295); Potassium 4.4 mmol/L (3.5-5.1); Sodium 136 mmol/L (136-145)
[2022-06-16 06:00] VITALS: PULSE 100
[2022-06-16 07:15] LABS: Glucose Point of Care 144 mg/dL (70-110)
[2022-06-16] MEDS: metoprolol tartrate 25 mg Tablet 50 MG PO (08:08)
[2022-06-16] MEDS: famotidine 20 mg Tablet PO (08:08)
[2022-06-16] MEDS: lisinopril 5 mg Tablet PO (08:08)
[2022-06-16] MEDS: aspirin 81 mg EC Tablet PO (08:08)
[2022-06-16] MEDS: clopidogrel 75 mg Tablet PO (08:09)
[2022-06-16] MEDS: insulin lispro 100 unit/1 mL SUBCUT ×2 (08:09→14:30)
[2022-06-16 08:12] LABS: Glucose Point of Care 150 mg/dL (70-110)
--- NOTE | 2022-06-16 10:44 | PC.CHAP ---
Pastoral Care Encounter/Spiritual Assessment Type of Contact [] Declined consulting actuary visit [] Patient/Family/Request visit [] Outpatient visit [] Follow-up visit [] Physician referral [] Code/Alert [x] Routine visit [] Staff referral [] Actively dying [] Patient sleeping [] Family support [] [] Out of room [] Palliative care [] [] Receiving care in room [] Pre-surgical visit [] Trauma [] Long length of stay [x] ICU visit [x] Other: setting up in CHAIR... Relational/Emotional Strength [] Patient feels connected with others/family/visitors/staff [] Distress [] Loneliness/isolation [] Abandonment Spirituality of Patient [] Person of Nita [] Attends Episcopal of their Nita [] Believes in Prayer [] Reads Bible or Denominational materials [] There are Spiritual issues to be addressed System Controller Interventions [x] Prayer [X] Active listening [X] Non-anxious presence [X] Spiritual/emotional support [] Crisis/trauma care [] Spiritual counseling [] Bereavement support [] Provided bereavement packet [] Provided Bible/devotional materials [] Provided toy/stuffed animal, coloring book to patient or family member [] Provided Communion [] Anointing/[place] [] Salvation [x] Completed spiritual assessment [] Other: Impact on Illness or Injury [] Angry [] Fearful [] Anxious [] Often cries [] Exhaustion [] Unable to work [] Unable to attend amish [] Unable to walk/stand [] Unable to read [] Unable to drive [] Unable to eat/drink [] Unable to sleep [] Unable to be with family [] Patient intubated [] Other: Summary PATIENT FEELING A LOT BETTER Time spent with patient
[2022-06-16 10:57] VITALS: PULSE 83; O2SAT 95
[2022-06-16 12:09] LABS: Glucose Point of Care 293 mg/dL (70-110)
--- NOTE | 2022-06-16 12:19 | PM.PN ---
Subjective Subjective: seen this AM. chest pain free doing well awaiting lifevest heparin drip dc blood sugar fasting 155 poc 150-250 range, being covered with SSI Vitals/I&O/Wt Last Vital Signs Temp 98.1 F 06/15/22 20:00 Pulse 83 06/16/22 10:57 Resp 27 H 06/15/22 21:00 BP 135/76 06/15/22 21:00 Pulse Ox 95 06/16/22 10:57 06/15/22 06/16/22 06/16/22 22:59 06:59 14:59 Intake Total 585.35 / 985.35 167.133 / 167.133 Output Total 225 / 500 1075 / 1575 200 / 200 Balance -225 / -100 -489.65 / -589.65 -32.867 / -32.867 Weight last 48 hrs Weight 72.983 kg Weight 75.478 kg Physical Exam Narrative: Constitutional: Awake and alert, no acute distress HEENT: Normocephalic, atraumatic, eomi Respiratory: Clear to auscultation bilaterally anteriorly Cardiovascular: Regular rate and rhythm, normal s1, s2, compression bandage in place to right wrist Abdomen: Soft, rotund, nontender, positive bowel sounds Extremities: Trace edema Data : 06/16/22 04:41 06/16/22 04:41 A&P Assessment and plan (1) Ischemic cardiomyopathy: Status: Acute (2) NSTEMI (non-ST elevated myocardial infarction): Status: Acute (3) Type 2 diabetes mellitus: Status: Chronic Qualifiers: Diabetes mellitus correction insulin use: without predatory animal exterminator use Diabetes mellitus complication status: with circulatory complication Diabetes mellitus complication detail: with other circulatory complications Qualified Code(s): E11.59 - Type 2 diabetes mellitus with other circulatory complications (4) Hypertension: Status: Chronic Qualifiers: Hypertension type: primary hypertension Qualified Code(s): I10 - Essential (primary) hypertension (5) ST segment changes on electrocardiogram: Status: Acute (6) Coronary artery chronic total occlusion: Status: Acute Plan #ACS, STEMI #Diabetes Mellitus #HTN -?s/p angiogram, has [employer] RCA + LTO - Aspirin, plavix, statin, lopressor - HbA1c 8.1, lipid profile checked. LDL 130, HDL 42 - Continue liisinopril 5 daily - SSI to be continued for now - Hold metformin for 48 hours. May restart it tomorrow. - Hold glimepiride for now, on SSI - At discharge, will send on metformin 1000 bid and home medication glimepiride 2 mg bid. Patient has never had hypoglycemic episodes with it. He will need to follow with primary care thereafter. Full Code DVT PPX: SCDS, heparin subcu Transfer to floor today Will need lifevest prior to dc Attestations Medical Necessity Statement*: Defer to primary team Coding Level of Care Code Acute Bobbin Winder for Chg Fwd Diagnoses Ischemic cardiomyopathy I25.5 NSTEMI (non-ST elevated myocardial infarction) I21.4 Type 2 diabetes mellitus E11.59 Diabetes mellitus predatory animal exterminator insulin use: without correction use Diabetes mellitus complication status: with circulatory complication Diabetes mellitus complication detail: with other circulatory complications Hypertension I10 Hypertension type: primary hypertension ST segment changes on electrocardiogram R94.31 Coronary artery chronic total occlusion I25.82
--- NOTE | 2022-06-16 14:28 | PM.DCS ---
Discharge Providers Date of Admission: 06/13/22 17:47 Date of Discharge: June 16, 2022 Attending Provider at Admission: Aiden Thayer M.D Attending Provider at Discharge: Aiden Thayer M.D Primary Care Provider: Storm Khan MD Diagnoses at Discharge Discharge Diagnosis (1) Ischemic cardiomyopathy: Status: Acute (2) NSTEMI (non-ST elevated myocardial infarction): Status: Resolved (3) Type 2 diabetes mellitus: Status: Chronic Qualifiers: Diabetes mellitus complication detail: with other circulatory complications Diabetes mellitus complication status: with circulatory complication Diabetes mellitus nursing home insulin use: without nursing home use Qualified Code(s): E11.59 - Type 2 diabetes mellitus with other circulatory complications (4) Hypertension: Status: Chronic Qualifiers: Hypertension type: primary hypertension Qualified Code(s): I10 - Essential (primary) hypertension (5) ST segment changes on electrocardiogram: Status: Resolved (6) Coronary artery chronic total occlusion: Status: Acute Reason for Visit Reason for Visit: n/v, stemi alert Brief History: 67 year old male with past medical history of hypertension and diabetes who called EMS after having diaphoresis, nausea and vomiting.? Also felt weak. EMS performed showed dynamic ST T wave changes in leads V1 to V3. STEMI alert was called.? Patient denied significant chest discomfort.? Does have mild dyspnea and cough? Says he feels confused. Hospital Course Hospital Course 67 year old male with past medical history of hypertension and diabetes who called EMS after having diaphoresis, nausea and vomiting.? Also felt weak. EMS performed showed dynamic ST T wave changes in leads V1 to V3. STEMI alert was called.? Patient denied significant chest discomfort.? Does have mild dyspnea and cough? Says he feels confused. Coronary angiogram revealed totally occluded RCA and LAD. Wiring could not be performed on LAD. Negative. Chronic total occlusion. He was chest pain-free. Further attempts were aborted. Brief attempt at revascularization of RCA also put on however it was a VACCINE SPECIALIST. Patient's echocardiogram showed severely reduced systolic function with EF of 30 to 35%. LifeVest was ordered however he did not want to stay at he received it. His troponins did go up consistent with non-ST elevation [place]. He was treated for NSTEMI protocol. He remained hemodynamically stable and was discharged home in a stable condition. Physical Exam Narrative: GENERAL: Patient is alert, awake and oriented x3. [] NECK: No jugular vein distension. [] HEENT: No cyanosis. No icterus. No pallor. [] HEART: Regular S1 and S2. No murmur, rub or gallop. [] LUNGS: Clear to auscultate bilaterally. [] ABDOMEN: Soft, nontender and nondistended. Positive bowel sounds. No guarding, rebound or tenderness. [] CENTRAL NERVOUS SYSTEM: Grossly nonfocal. [] EXTREMITIES: Lower extremities with 1+ edema bilaterally. Pulses palpable in the lower extremities, both dorsalis pedis and posterior tibial. [] Discharge Data Studies Completed and Pending Completed Studies During Hospitalization Category Date Time Status XR chest 1V portable [id number] Stat Exams 06/13/22 15:02 Completed CV. echo complete* [id number] Routine Ultrasound 06/14/22 17:04 Completed CV. echo lmt w/w contras [id number] Routine Ultrasound 06/16/22 00:55 Completed Pending at discharge Category Date Time Status ETHYLBENZENE OXIDIZER request for service Stat Exams 06/13/22 15:19 Taken Platelet Count Q2D Lab 06/18/22 04:00 Ordered Radiology Impressions Chest X-Ray 06/13/22 15:02 IMPRESSION: No acute findings. Laboratory Results WBC 9.5 10^3/uL (4.0-10.0) 06/16/22 04:41 RBC 5.91 10^6/uL (4.1-5.3) H 06/16/22 04:41 Hgb 18.1 g/dL (11.7-16.6) H 06/16/22 04:41 Hct 51.3 % (42.0-52.0) 06/16/22 04:41 MCV 86.8 fl (80-94) 06/16/22 04:41 MCH 30.6 pg (28.0-34.0) 06/16/22 04:41 MCHC 35.3 g/dL (30.0-36.0) 06/16/22 04:41 RDW 12.9 % (12.1-15.1) 06/16/22 04:41 Plt Count 216 10^3/cmm (130-400) 06/16/22 04:41 MPV 9.6 fL (7.4-10.4) 06/16/22 04:41 Neut % (Auto) 59.1 % 06/16/22 04:41 Lymph % (Auto) 24.1 % 06/16/22 04:41 [place] % (Auto) 8.0 % 06/16/22 04:41 Eos % (Auto) 6.9 % 06/16/22 04:41 Baso % (Auto) 1.2 % 06/16/22 04:41 Neut # (Auto) 5.64 10^3/uL (1.8-7.7) 06/16/22 04:41 Lymph # (Auto) 2.3 10^3/uL (0.8-4.8) 06/16/22 04:41 [place] # (Auto) 0.8 10^3/uL (0.2-0.9) 06/16/22 04:41 Eos # (Auto) 0.7 10^3/uL (0.0-0.8) 06/16/22 04:41 Baso # (Auto) 0.1 10^3/uL (0.0-0.1) 06/16/22 04:41 Nucleated RBC % (auto) 0 % 06/16/22 04:41 Nucleated RBCs # 0.0 /100WBC 06/16/22 04:41 APTT 30.0 SECONDS (23.9-36.7) 06/16/22 11:08 Specimen Type Arterial 06/14/22 03:17 Sample Site Radial, right 06/14/22 03:17 ABG pH 7.36 (7.35-7.45) 06/14/22 03:17 ABG pCO2 40.7 mmHg (35-45) 06/14/22 03:17 ABG pO2 85.3 mmHg (80.0-100.0) 06/14/22 03:17 ABG HCO3 23.0 mmol/L (22-26) 06/14/22 03:17 ABG Base Excess -2.4 mmol/L (-2.0-2.0) L 06/14/22 03:17 Jorden Test Pos 06/14/22 03:17 Hematocrit 52.0 % (42-52) 06/14/22 03:17 O2 Delivery Device Room air 06/14/22 03:17 Forgeman Helper ID ellpe 06/14/22 03:17 Sodium 136 mmol/L (136-145) 06/16/22 04:41 Potassium 4.4 mmol/L (3.5-5.1) 06/16/22 04:41 Chloride 100 mmol/L (98-107) 06/16/22 04:41 Carbon Dioxide 25 mmol/L (22-29) 06/16/22 04:41 Anion Gap 15.4 (5-19) 06/16/22 04:41 BUN 16 mg/dL (8-23) 06/16/22 04:41 Creatinine 1.1 mg/dL (0.7-1.2) 06/16/22 04:41 GFR Calculation 66.4 mL/min (90-130) L 06/16/22 04:41 Glucose 155 mg/dL (65-115) H 06/16/22 04:41 POC Glucose 293 mg/dL (70-110) H 06/16/22 12:06 Estimat Average Glucose 186 06/14/22 04:39 Hemoglobin A1c 8.1 % (4.0-6.0) H 06/14/22 04:39 Calculated Osmolality 286 mOsm/kg (285-295) 06/16/22 04:41 Calcium 9.0 mg/dL (8.5-10.5) 06/16/22 04:41 Phosphorus 4.2 mg/dL (2.5-4.5) 06/14/22 04:39 Magnesium 1.7 mg/dL (1.7-2.3) 06/16/22 04:41 Total Bilirubin 0.7 mg/dL (0.15-1.2) 06/15/22 10:38 AST 64 U/L (0-40) H 06/15/22 10:38 ALT 42 U/L (0-41) H 06/15/22 10:38 Alkaline Phosphatase 75 IU/L (40-130) 06/15/22 10:38 Troponin T Baseline 24 ng/L (0-15) H 06/13/22 15:00 Troponin T 120 Minute 50.54 ng/L (0-15) H 06/13/22 16:34 Delta Troponin T 26.54 ABS# (0-10) H* 06/13/22 16:34 Troponin T Hi Sens 6Hr 619.6 ng/L (0-15) H 06/13/22 21:00 Troponin T Hi Sens 6Hr Delta 595.6 ng/L (0-12) H* 06/13/22 21:00 NT-Pro-B Natriuret Pep 2248 pg/mL (0-125) H 06/14/22 04:39 Total Protein 6.6 g/dL (6.6-8.7) 06/15/22 10:38 Albumin 3.8 g/dL (3.5-5.2) 06/15/22 10:38 Globulin 2.8 g/dL (1.3-4.6) 06/15/22 10:38 Triglycerides 101 mg/dL (0-150) 06/14/22 04:39 Cholesterol 192 mg/dL (0-200) 06/14/22 04:39 LDL Cholesterol, Calc 130 mg/dL (50-129) H 06/14/22 04:39 HDL Cholesterol 42 mg/dL (60-100) L 06/14/22 04:39 LDL/HDL Ratio 3.10 RATIO (0.00-3.22) 06/14/22 04:39 Cholesterol/HDL Ratio 4.57 mg/dL (1.0-5.00) 06/14/22 04:39 Urine Color Yellow (Yellow) 06/14/22 19:15 Urine Appearance Clear (CLEAR) 06/14/22 19:15 Urine pH 6 (5-7) 06/14/22 19:15 Ur Specific [place] 1.010 (1.005-1.030) 06/14/22 19:15 Urine Protein Neg (Negative) 06/14/22 19:15 Urine Glucose (UA) 2+ (Normal) H 06/14/22 19:15 Urine Ketones Negative (Negative) 06/14/22 19:15 Urine Blood Neg (Negative) 06/14/22 19:15 Urine Nitrate Negative (Negative) 06/14/22 19:15 Urine Bilirubin Neg (Negative) 06/14/22 19:15 Urine Urobilinogen Norm mg/dL (Negative) 06/14/22 19:15 Ur Leukocyte Esterase Negative (Negative) 06/14/22 19:15 Vitals Last Vital Signs Temp 98.1 F 06/15/22 20:00 Pulse 83 06/16/22 10:57 Resp 27 H 06/15/22 21:00 BP 135/76 06/15/22 21:00 Pulse Ox 95 06/16/22 10:57 Discharge Plan Discharge Patient Disposition: Home Condition: Stable Prescriptions: New atorvastatin 40 mg Tablet 40 mg PO BEDTIME 30 Days Qty: 30 0RF clopidogrel 75 mg Tablet 75 mg PO DAILY 30 Days Qty: 30 0RF aspirin 81 mg Tablet,Delayed Release (Dr/Ec) 81 mg PO DAILY 30 Days Qty: 30 0RF lisinopril 5 mg Tablet 5 mg PO DAILY 30 Days Qty: 30 0RF metoprolol tartrate 25 mg Tablet 50 mg PO BID@0900,2100 30 Days Qty: 60 0RF Lasix 20 mg tablet 20 mg PO QAM 30 Days Qty: 30 0RF potassium chloride 10 mEq capsule, extended release See Rx Instructions .ROUTE .COMPLEX 30 Days Qty: 30 0RF Rx Instructions: 10 mEq orally every other day If you happen to miss lasix dose, do not take potassium that day. Continued prenat.vits,ethan,[id number] Tablet 1 tab PO DAILY Qty: 90 3RF glimepiride 2 mg tablet 2 mg PO BID metformin 1,000 mg tablet 1,000 mg PO BID Discontinued aspirin 325 mg tablet 650 mg PO BEDTIME lisinopril-hydrochlorothiazide 20-12.5 mg tablet 1 tab PO QAM Discharge Orders: Discharge Order (Routine); Ordered 06/16/22 Ordered By: Cheryl Jaimes Other Ambulatory Orders: Basic Metabolic Panel (Routine) Timeframe: 1 Week Facility: [facility] - Location: Lab - Main Lab Ordered By: Cheryl Jaimes Referrals: Kristi Wang FNP [Nurse Practitioner] - 4-7 days (May ,time of 09:00 please see same day appointment with Sharita Booker, if inconvieient , please reschedule ,but will need Sharita Booker for post cath /wound check .) Aiden Thayer M.D [Physician] - 1 month (appointment for follow up has been scheduled . [facility] for date: July at time of 1:30 pm ) Sharita Booker FNP [Nurse Practitioner] - 1 week (Sharita Booker appointment time :May at time of 1:45 pm will draw lab at time of appointment ) Discharge Diet: Cardiac and Low Salt Discharge Activity: Increase activity as tolerated Patient Instructions: Metoprolol (By mouth), Lisinopril (By mouth), Furosemide (By mouth) (Lasix), Potassium Chloride (By mouth), Aspirin (By mouth) (Remy Extra Strength, Remy Aspirin [facility],..., Atorvastatin (By mouth), Clopidogrel (By mouth) (Plavix), Heart Attack (DC), Dilated Cardiomyopathy (DC), Heart Healthy Diet (DC), Chest Pain Stoplight, Opioid Safety, Post Angiogram Home Care Instructions Activity Restrictions/Additional Instructions: Lifevest request has been sent to the [facility] for approval. Once approved, it will be sent to your house and will be setup for you. Please follow up with cardiology and your primary care doctor after discharge within 7 days. Please follow carbohydrate consistent diet and recheck HbA1c at 3 months. Please see PCP for optimization of glucose control. Discharge Attestations Time Spent in Discharge Care*: greater than 30 min Quality Metrics Clinical Quality Measures [ Acute Myocardial Infaction { Clinical Trial Participant: No; Contraindication to aspirin: None; Aspirin prescribed; Contraindication to statin: None; Statin prescribed; Contraindication to PCI: Intervention not indicated;}] Coding Level of Care Code Acute Chg FW DC note Diagnoses Ischemic cardiomyopathy I25.5 NSTEMI (non-ST elevated myocardial infarction) I21.4 Type 2 diabetes mellitus E11.59 Diabetes mellitus complication detail: with other circulatory complications Diabetes mellitus complication status: with circulatory complication Diabetes mellitus watermelon inspector insulin use: without nursing home use Hypertension I10 Hypertension type: primary hypertension ST segment changes on electrocardiogram R94.31 Coronary artery chronic total occlusion I25.82
--- NOTE | 2022-06-16 14:37 | PC.SOCIAL ---
IMM UPDATED IMM dated and initialed copy placed in chart and copy given to patient
--- NOTE | 2022-06-16 15:00 | PC.NURSE ---
Pt requesting to go home even though lifevest will not be available today. States pt's is bedbound and reliant on to provide care for her. Advised pt that he is not well enough with lift restrictions to care for . Pt and daughter both state daughter will be providing care for both of them with pt overseeing care. Pt and daughter both educated regarding risks of pt going home without lifevest including the possibility of . Both indicated understanding and accepted risks.
--- NOTE | 2022-06-16 16:12 | PC.NURSE ---
Metoprolol 50mg PO BID 30 day supply quantity 60 [facility] only 15 day supply ordered. Changed quantity to 120 to fill full [address] Jaimes.
[2022-06-16 18:50] VITALS: BP 128/77; PULSE 94; RESP 16; O2SAT 90
== END 2022-06-16 16:50 | disposition home or self-care (01) | DRG 282 ==
LOC: ER 15:15 → CCL 15:20 → ICU 17:07
PROVIDERS: Hospitalist; Internal Medicine; Admitting Provider Internal Medicine; Emergency Provider Emergency Medicine; PCP Family Medicine; Visit Provider Internal Medicine
PROC: B211YZZ Fluoroscopy of Multiple Coronary Arteries using Other Contrast (ICD-10-PCS; principal; 2022-06-13 15:20)
DX: I21.4 Non-ST elevation (NSTEMI) myocardial infarction (principal); I25.10 Atherosclerotic heart disease of native coronary artery without angina pectoris; I24.9 Acute ischemic heart disease, unspecified; E11.9 Type 2 diabetes mellitus without complications; F17.200 Nicotine dependence, unspecified, uncomplicated; Z86.14 Personal history of Methicillin resistant Staphylococcus aureus infection; I25.5 Ischemic cardiomyopathy; Z79.84 Long term (current) use of oral hypoglycemic drugs; I10 Essential (primary) hypertension
CPT/HCPCS: 36415; 36416; 36600; 71045; 80048; 80053; 80061; 81003; 82803; 82962; 83036; 83735; 83880; 84100; 84484; 85025; 85347; 85730; 93005; 93306; 93454; 94760; 96360; 96372; 99152; 99153; 99285; C1725; C1769; C1887; C1894; C8924; J1644; J1815; J2250; J2405; J3010; J3475; J3490; J7030; Q9967

== ENCOUNTER → 2022-06-23 14:35 | Outpatient (BNVA) | payer MEDICARE, SELFPAY | PROVIDERS: PCP Family Medicine; Visit Provider Nurse Practitioner Family | DX: I25.5 Ischemic cardiomyopathy (principal); I25.82 Chronic total occlusion of coronary artery | CPT/HCPCS: 80048; 99214 ==

== ENCOUNTER 2022-07-05 10:24 | Outpatient (CLI) | payer MEDICARE, SELFPAY ==
[2022-07-05 11:27] LABS: Anion Gap 16.8 (5-19); Blood Urea Nitrogen 22 mg/dL (8-23); Calcium 9.4 mg/dL (8.5-10.5); Carbon Dioxide 22 mmol/L (22-29); Chloride 106 mmol/L (98-107); Glomerular Filtration Rate 54.7 mL/min (90-130); Glucose 112 mg/dL (65-115); Osmolality Calculated 294 mOsm/kg (285-295); Potassium 4.8 mmol/L (3.5-5.1); Sodium 140 mmol/L (136-145)
== END 2022-07-05 10:25 | disposition home or self-care (01) ==
PROVIDERS: PCP Family Medicine; Visit Provider Nurse Practitioner Family
DX: I25.5 Ischemic cardiomyopathy (principal); I50.20 Unspecified systolic (congestive) heart failure
CPT/HCPCS: 36415; 80048

== ENCOUNTER → 2022-08-05 12:01 | Outpatient (BNVA) | payer MEDICARE, SELFPAY | PROVIDERS: PCP Family Medicine; Visit Provider Internal Medicine | DX: I11.0 Hypertensive heart disease with heart failure (principal); I50.22 Chronic systolic (congestive) heart failure; E11.59 Type 2 diabetes mellitus with other circulatory complications; Z79.84 Long term (current) use of oral hypoglycemic drugs; I25.5 Ischemic cardiomyopathy; I25.10 Atherosclerotic heart disease of native coronary artery without angina pectoris; Z87.891 Personal history of nicotine dependence | CPT/HCPCS: 99214 ==

== ENCOUNTER → 2022-09-22 10:00 | Outpatient (BNVA) | payer MEDICARE, SELFPAY | PROVIDERS: PCP Family Medicine; Visit Provider Nurse Practitioner | DX: E11.59 Type 2 diabetes mellitus with other circulatory complications (principal) | CPT/HCPCS: 83036 ==

== ENCOUNTER 2022-11-17 07:31 | Outpatient (CLI) | payer MEDICARE, SELFPAY ==
--- NOTE | 2022-11-17 07:37 | USCV_ITS ---
Blink, Armando Age: 67 Gender: M : 1955 Exam Date: 11/17/2022 08:16 Ordering Phys: Aiden Thayer M.D ([email or web address]) Technologist: Coleen Ramos [place] [facility] [place]ication: EF assessment, CAD, pos MS BP: 118 / 76 HR: 77 Rhythm: Other Technical Quality: Adequate MEASUREMENTS (Male / Female) Normal Values 2D ECHO LV Diastolic Diameter PLAX 4.2 cm 4.2 - 5.9 / 3.9 - 5.3 cm LV Systolic Diameter PLAX 3.0 cm IVS Diastolic Thickness 1.3 cm 0.6 - 1.0 / 0.6 - 0.9 cm IVS Systolic Thickness 1.1 cm LVPW Diastolic Thickness 1.0 cm 0.6 - 1.0 / 0.6 - 0.9 cm LVPW Systolic Thickness 1.2 cm LVOT Diameter 2.1 cm LV Ejection Fraction 2D Teich 52.9 % LV Ejection Fraction MOD 2C 23.0 % LV Ejection Fraction 2C AL 24.3 % LA Diameter 2.6 cm LA Width 2.8 cm LA Height 4.1 cm RA Width 2.4 cm RA Height 4.0 cm Aorta at Sinotubular Diameter 3.7 cm IVC Diameter 2.5 cm FINDINGS Left Ventricle Right Ventricle Right Atrium Left Atrium Mitral Valve Aortic Valve Tricuspid Valve Pulmonic Valve Pericardium Aorta IVC CONCLUSIONS This is a limited echocardiogram performed to assess LV systolic function. LV systolic function is severely reduced with EF of 30-35%. Severe hypokinesis to akinesis of apical wall. Severe hypokinesis of anteroseptal and inferoseptal ryder. Compared to prior echocardiogram from 06/16/2022, LV systolic function has not improved significantly. Aiden Thayer MD (Electronically Signed) Final Date: 17 November 2022 15:52 S
[2022-11-17] MEDS: perflutren protein-a microsphr 0.22 mg/mL SDV 3 mL IV (09:11)
== END 2022-11-17 07:32 | disposition home or self-care (01) ==
LOC: RAD 07:31
PROVIDERS: PCP Family Medicine; Visit Provider Internal Medicine
DX: R93.1 Abnormal findings on diagnostic imaging of heart and coronary circulation (principal)
CPT/HCPCS: C8924; Q9956

== ENCOUNTER → 2022-12-14 10:31 | Outpatient (BNVA) | payer MEDICARE, SELFPAY | PROVIDERS: PCP Family Medicine; Visit Provider Thoracic Surgery (Cardiothoracic Vascular Surgery) | DX: I11.0 Hypertensive heart disease with heart failure (principal); I50.20 Unspecified systolic (congestive) heart failure; I25.5 Ischemic cardiomyopathy; Z87.891 Personal history of nicotine dependence | CPT/HCPCS: 99203 ==

== ENCOUNTER 2023-01-04 12:05 | Observation (INO) | payer MEDICARE, SELFPAY ==
[2023-01-03 12:27] VITALS: BMI 25.5
[2023-01-04] VITALS (13 sets, daily range): BP systolic 103–133; BP diastolic 43–85; PULSE 73–83; RESP 16–23; TEMP 36.1–36.7; O2SAT 93–99
--- NOTE | 2023-01-04 06:42 | SC_ITS ---
WS: [id number] C-arm FL for Pacemaker REASON FOR EXAM: AICD implantation FINDINGS: Cardiac pacing lead from left subclavian vein to right ventricular apex. Position appears appropriate. SC/C-arm FL for Pacemaker IMPRESSION: Pacemaking lead positioned as above.
[2023-01-04 07:05] LABS: Glucose Point of Care 209 mg/dL (70-110)
[2023-01-04 07:11] LABS: Basophils # 0.1 10^3/uL (0.0-0.1); Basophils % 0.9 %; Eosinophils # 0.8 10^3/uL (0.0-0.8); Eosinophils % 7.5 %; Hemoglobin 17.1 g/dL (11.7-16.6); Lymphocytes # 2.4 10^3/uL (0.8-4.8); Lymphocytes % 21.7 %; Mean Corpuscular HGB Conc 33.5 g/dL (30.0-36.0); Mean Corpuscular Hemoglobin 29.7 pg (28.0-34.0); Mean Corpuscular Volume 88.5 fl (80-94); Mean Platelet Volume 9.2 fL (7.4-10.4); Monocytes # 0.7 10^3/uL (0.2-0.9); Monocytes % 6.4 %; Neutrophils # 6.95 10^3/uL (1.8-7.7); Neutrophils % 62.2 %; Nucleated Red Blood Cells % 0 %; Platelet Count 244 10^3/cmm (130-400); Red Blood Count 5.76 10^6/uL (4.1-5.3); Red Cell Distribution Width 12.9 % (12.1-15.1); White Blood Count 11.2 10^3/uL (4.0-10.0)
[2023-01-04] MEDS: sodium chloride 0.9% 1,000 ML 30 ML IV (07:13)
--- NOTE | 2023-01-04 07:14 | ANES.PREANE2 ---
Pre-Anesthetic Assessment Height/Weight: Height 1.7 m Weight 73.936 kg Temp Pulse Resp BP Pulse Ox O2 Del Method 97.1 F L 73 18 132/83 98 01/04/23 06:54 01/04/23 06:54 01/04/23 06:54 01/04/23 06:54 01/04/23 06:54 01/04/23 06:54 Preop Diagnosis: Congestive heart failure with ischemic cardiomyopathy Operation Date: 01/04/23 08:20 Proposed Procedures p Defibrillator Placement 91318,I50.23,I25.5(Not Applicable) - Codey Leo MD Familial anesthetic complications: none Was Beta Jeffrey taken within 24 hours: Yes Was Clonidine taken within 24 hours: N/A Last intake: Intake Last Liquid Date 01/03/23 Last Liquid Time 19:00 Last Solid Date 01/03/23 Last Solid Time 19:00 Social No alcohol and No tobacco Exam alert, oriented x 3, clear to auscultation bilaterally and regular rate & rhythm Airway Mallampati: Class III Dentition: full CV/HEM Coronary Artery Disease (chronic LAD/RCA occlusion s/p failed attempts at revascularization - lifevest), Congestive Heart Failure, Hypertension and Myocardial Infarction Echo CONCLUSIONS ?This is a limited echocardiogram performed to assess LV systolic ?function. ?LV systolic function is severely reduced with EF of 30-35%.? ?Severe hypokinesis to akinesis of apical wall.? Severe ?hypokinesis of anteroseptal and inferoseptal ryder. ?Compared to prior echocardiogram from 06/16/2022, LV systolic ?function has not improved significantly. 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 1. Total occlusion of RCA and proximal LAD. ? 2. Wire could not be advanced and they appear chronic total occlusion with collateral supply ? 3. from left circumflex artery.? As patient was chest pain-free ? 4. , we decided to abort further attempts at revascularization. ? 5. He was ? 6. transferred ? 7. to ICU in a stable condition ? 8. and dynamically stable.. Recommendations ? * Transfer to ICU. ? * We will treat as non-ST elevation DE ? * . Trend troponins. ? * Order echocardiogram. ? * Patient has guarded long-term prognosis given significant CAD. ? * We will consult medicine team for alternative diagnosis and medical management. Metabolic Diabetes Mellitus and Hyperlipidemia Anesthetic Plan ASA status: 4 Anesthesia: MAC Risk of > 500 ml blood loss (7ml/kg in children): No Medications/Allergies Home Medications Medication Instructions Recorded Confirmed Last Taken Type prenat.vits,ethan,aax-tcwe-fhwia 1 tab PO DAILY #90 tabs 01/23/21 01/04/23 01/03/23 Rx atorvastatin 40 mg tablet 40 mg PO BEDTIME #90 tabs 07/13/22 01/04/23 01/03/23 Rx clopidogrel 75 mg tablet 75 mg PO DAILY #90 tabs 07/13/22 01/03/23 12/30/22 Rx furosemide 20 mg tablet (Lasix) 20 mg PO QAM #90 tabs 07/13/22 01/04/23 01/03/23 Rx lisinopril 5 mg tablet 5 mg PO DAILY #90 tabs 07/13/22 01/04/23 01/03/23 Rx metoprolol tartrate 25 mg tablet 50 mg PO BID #360 tabs 07/13/22 01/04/23 01/04/23 Rx potassium chloride 10 mEq See Rx Instructions .Route 07/13/22 01/04/23 01/03/23 Rx capsule,extended release .COMPLEX #90 caps aspirin 81 mg tablet,delayed 81 mg PO DAILY 08/05/22 01/03/23 12/31/22 History release glimepiride 2 mg tablet See Rx Instructions .Route 10/11/22 01/04/23 01/03/23 Rx .COMPLEX #180 tabs metformin 1,000 mg tablet See Rx Instructions .Route 12/20/22 01/04/23 01/03/23 Rx .COMPLEX #60 tabs Allergies Allergy/AdvReac Type Severity Reaction Status Date / Time Penicillins AdvReac anaphylaxis Verified 12/14/22 11:00 Current Medications Generic Name Dose Route Start Last Admin Trade Name Freq PRN Reason Stop Dose Admin Sodium Chloride 1,000 mls @ 30 mls/hr 01/04/23 06:45 01/04/23 07:13 Sodium Chloride 0.9% IV 01/05/23 06:44 30 mls/hr .Q24H DEEPA Administration PFSH Anesthesia Medical History ACC/AHA stage C systolic heart failure due to ischemic cardiomyopathy History of MRSA infection Skin of back and right thigh, required surgery with skin grafting Hypertension Type 2 diabetes mellitus Surgical History History of skin graft Back and right thigh, secondary to MRSA skin infection Family History Son CAD (coronary artery disease) Other Diabetes Social History Smoking and tobacco status: former smoker Alcohol intake: former Household members: spouse and family Marital status: Data Anesthesia 01/04/23 07:05 01/04/23 07:05 Short CBC 01/04/23 Range/Units 07:05 WBC 11.2 H (4.0-10.0) 10^3/uL Hgb 17.1 H (11.7-16.6) g/dL Hct 51.0 (42.0-52.0) % MCV 88.5 (80-94) fl Plt Count 244 (130-400) 10^3/cmm Neut % (Auto) 62.2 % Neut # (Auto) 6.95 (1.8-7.7) 10^3/uL Cardiac Studies: Echocardiogram 11/17/22
[2023-01-04 07:34] LABS: Anion Gap 17.1 (5-19); Blood Urea Nitrogen 22 mg/dL (8-23); Carbon Dioxide 22 mmol/L (22-29); Chloride 102 mmol/L (98-107); Glomerular Filtration Rate 74.1 mL/min (90-130); Glucose 207 mg/dL (65-115); Osmolality Calculated 293 mOsm/kg (285-295); Potassium 4.1 mmol/L (3.5-5.1); Sodium 137 mmol/L (136-145)
[2023-01-04 07:59] LABS: Add Urine Microscopic? YES; Bilirubin Urine Neg (Negative); Blood Urine Neg (Negative); Glucose Urine UA Norm (Normal); Ketones Urine Negative (Negative); Leukocyte Esterase Urine Negative (Negative); Nitrate Urine Negative (Negative); Protein Urine Trace (Negative); Urine Appearance Clear (CLEAR); Urine Color Yellow (Yellow); Urobilinogen Urine Norm (Negative); pH Urine 5 (5-7)
[2023-01-04 08:02] LABS: Bacteria Urine TRACE /hpf; WBC Urine 0-4 /hpf (0-5)
[2023-01-04 08:03] LABS: Add Urine Culture? No; RBC Urine 0-4 /hpf (0-2); Squamous Epithelial Cell Urine 0-4 /hpf (0-5)
[2023-01-04] MEDS: vancomycin 1,500 MG/300 ML PIGGYBACK 200 MG IV (08:06)
--- NOTE | 2023-01-04 08:21 | W.PM.OPSUD ---
Surgery/Procedure H&P Update DATE OF PROCEDURE: January 04, 2023 DATE H&P PERFORMED: 12/14/22 H&P UPDATE INFORMATION: I have reviewed H&P completed within last 30 days, I have examined patient prior to procedure and No changes to prior documentation PREOP DIAGNOSIS: Congestive heart failure with ischemic cardiomyopathy PLANNED PROCEDURE: Operation Date: 01/04/23 08:20 Proposed Procedures p Defibrillator Placement 25572,I50.23,I25.5(Not Applicable) - Codey Leo MD
[2023-01-04] MEDS: vancomycin 1,000 MG SDV 1000 MG IRRIGATION (09:30)
[2023-01-04] MEDS: lidocaine 1% INJ 10 mL (per mL) 20 ML INJECTION (09:30)
--- NOTE | 2023-01-04 09:34 | SUR.OPER ---
Called daughter and notified her of surgical start.
--- NOTE | 2023-01-04 10:46 | SUR.OPER ---
called daughter and notified her of surgical progress and pt status.
--- NOTE | 2023-01-04 11:05 | P.OP_ITS ---
Operative Report Date of procedure: January 04, 2023 Pre-op diagnosis: Preop Diagnosis Congestive heart failure with ischemic cardiomyopathy Post-op diagnosis: same Procedure done: Automatic implantable cardiac defibrillator implantation Implants: AICD generator Right ventricular lead Pathology: none sent Surgeon: Codey Leo Anesthesia: MAC and Local Complications: None Condition: stable Disposition: PACU Brief History: Mr. Pablo is a 67-year-old gentleman with medically refractory cardiomyopathy and congestive heart failure. AICD implantation as primary prophylaxis has been recommended by our cardiology colleagues. He underwent outpatient preop evaluation. Details of risk of procedure were carefully and frankly discussed. Appropriate consents have been reviewed and signed. Procedure: Procedure: Mr. Irwin was taken to the OR suite and placed in the supine position over a shoulder roll. He received conscious sedation with continuous anesthesia monitoring by. His entire chest was sterilely prepped and draped. Appropriate timeout was completed and confirmed. 1% lidocaine was infiltrated in the left subclavicular region. While in Trendelenburg position, utilizing modified seldinger technique, a guidewire was placed in the left subclavian vein. This was confirmed in position by fluoroscopy. Next, after infiltration with lidocaine, a subcutaneous pocket was created beginning from the exit point of the guidewire and extending laterally and inferiorly. Cautery was utilized to create the pocket just above the pectoralis musculature. Hemostasis was confirmed. An antibiotic-soaked sponge was placed in the wound. A dilator and tear-away sheath was placed over the guidewire and advanced under fluoroscopy. Guidewire and dilator were removed. Next using a combination of curved and straight stylettes, the right ventricular lead was placed in position by fluoroscopy. The distal screw was extended. Interrogation was then performed confirming appropriate parameters. The tear-away sheath was then removed and the ventricular lead was sewn to the floor of the subcutaneous pocket. Generator was brought into the field, and after confirmation of hemostasis in the subcutaneous pocket, the lead was connected to the generator with appropriate capture. The entire system was interrogated by fluoroscopy. Lead and generator were secured in the pocket. Sponge and needle count was correct. The wound was then closed in 2 layers of 3-0 Vicryl suture. Skin was reapproximated in a subcuticular manner with 4-0 Monocryl suture. A pressure dressing was applied. The left arm was placed in a sling. Mr. Irwin had equal breath sounds bilaterally. He was then transferred to the PACU, where chest x- ray is currently pending. Family was notified of completion of the procedure by phone. They are not present on campus at this time. Following are the specifics of this system: Right ventricular lead is 55 cm and model 6935M Serial number [id number] Ventricular lead had sensing of 10.6 mV with an impedance of 570 ohms. Threshold was 0.5 V [employer]onic generator: Model # [id number] Serial # [id number] Pacing mode is VVI with the lower rate at 40.
--- NOTE | 2023-01-04 11:09 | P.PCN_ITS ---
PACU note Narrative: VSS, Good respiratory effort, report to ADVERTISING AGENCY MANAGER Exam: awake
--- NOTE | 2023-01-04 11:09 | PM.PACU ---
PACU note Narrative: VSS, Good respiratory effort, report to BOW REPAIRER CUSTOM Exam: awake
--- NOTE | 2023-01-04 11:14 | XRR_ITS ---
PROCEDURE INFORMATION: Exam: XR Chest Exam date and time: 01/04/2023 11:19 AM Age: 67 years old Clinical indication: Device placement; Other: Defib placement; Prior surgery; Surgery date: Post-operative (0-2 days) TECHNIQUE: Imaging protocol: Radiologic exam of the chest. Views: 1 view. COMPARISON: CR (CHEST, ) 06/13/2022 3:05 PM FINDINGS: Tubes, catheters and devices: There is a single lead AICD with the lead positioned in the right ventricle. Lungs: Lung volumes are low. There is no focal consolidation. Pleural spaces: There is no pleural effusion or pneumothorax. Heart/Mediastinum: Cardiomediastinal contours are unremarkable given AP projection and low lung volumes. Bones/joints: Bones are unremarkable. XR/XR chest 1V portable [id number] IMPRESSION: Satisfactory single lead AICD placement. No pneumothorax.
--- NOTE | 2023-01-04 11:24 | PC.NURSE ---
xray completed post procedure per Dr. Leo. Ice on procedure site
[2023-01-04] MEDS: insulin lispro 100 unit/1 mL SUBCUT ×2 (12:54→23:21)
[2023-01-04 12:55] LABS: Glucose Point of Care 243 mg/dL (70-110)
--- NOTE | 2023-01-04 16:07 | ANE.PACU2 ---
Inpatient post-anesthesia follow up: Airway intact: Yes Vital signs: Temperature 97.8 F Pulse Rate 74 Respiratory Rate 16 Blood Pressure 133/85 Pulse Oximetry 99 Oxygen Delivery Me thod Room Air Oxygen Flow Rate Fraction of Inspir ed Oxygen Hydration adequate: Yes Nausea and vomiting: No Pain level: 1 Mental status: Baseline
[2023-01-04 17:54] LABS: Glucose Point of Care 143 mg/dL (70-110)
[2023-01-04] MEDS: sulfamethoxazole-trimeth DS 160-800 mg Tablet 1 TAB PO (18:03)
[2023-01-04] MEDS: metoprolol tartrate 25 mg Tablet 50 MG PO (18:04)
[2023-01-04 22:20] LABS: Glucose Point of Care 206 mg/dL (70-110)
[2023-01-04] MEDS: atorvastatin 40 mg Tablet PO (23:21)
[2023-01-05] MEDS: HYDROcodone-acetaminophen 5-325 mg Tablet 1 TAB PO (00:32)
[2023-01-05 01:10] VITALS: BP 130/80; PULSE 80; RESP 17; TEMP 36.7; O2SAT 95
[2023-01-05 02:30] VITALS: PULSE 77
[2023-01-05 04:00] VITALS: BP 127/77; PULSE 81; RESP 17; TEMP 36.6; O2SAT 97
[2023-01-05 06:44] LABS: Glucose Point of Care 163 mg/dL (70-110)
--- NOTE | 2023-01-05 07:07 | P.DS_ITS ---
Discharge Providers Date of Admission: 01/04/23 12:05 Date of Discharge: January 05, 2023 Attending Provider at Admission: Codey Leo MD Attending Provider at Discharge: Codey Leo MD Primary Care Provider: Storm Khan MD Reason for Visit Reason for Visit: Acute on chronic systolic congestive heart failure Brief History: Mr. Irwin is a 67-year-old gentleman with medically refractory cardiomyopathy and congestive heart failure. He was presented yesterday for planned AICD implantation as primary prophylaxis. Hospital Course Hospital Course Mr. Irwin underwent single-lead AICD implantation yesterday as prophylaxis for severe cardiomyopathy with congestive heart failure. Postoperatively, he convalesced as outpatient in the bed where he continue to receive prophylactic antibiotics. He had minimal discomfort postop. Incision line this morning is clean and dry. There is no evidence for drainage or localized swelling. New dressing was applied. He is tolerating a diet well. Vital signs remained stable. He will be discharged home today in stable condition for scheduled follow-up in the [facility] heart care pacemaker clinic in 1 week. At the time of discharge, he is in stable condition. Physical Exam Chest: COMMONS NORMALS: normal inspection of the chest OTHER: Left subclavicular incision is clean and dry. There is no local swelling. No erythema. Surgical dressing was removed, incision inspected, and new dressing applied. Resp: COMMON NORMALS: normal respiratory effort, No retractions and clear to auscultation bilaterally AUSCULTATION: clear to auscultation bilaterally Discharge Data Studies Completed and Pending Completed Studies During Hospitalization Category Date Time Status XR chest 1V portable [id number] Routine Exams 01/04/23 11:14 Completed Radiology Impressions C-Arm Fluoroscopy 01/04/23 06:42 IMPRESSION: Pacemaking lead positioned as above. Chest X-Ray 01/04/23 11:14 IMPRESSION: Satisfactory single lead AICD placement. No pneumothorax. Laboratory Results WBC 11.2 10^3/uL (4.0-10.0) H 01/04/23 07:05 RBC 5.76 10^6/uL (4.1-5.3) H 01/04/23 07:05 Hgb 17.1 g/dL (11.7-16.6) H 01/04/23 07:05 Hct 51.0 % (42.0-52.0) 01/04/23 07:05 MCV 88.5 fl (80-94) 01/04/23 07:05 MCH 29.7 pg (28.0-34.0) 01/04/23 07:05 MCHC 33.5 g/dL (30.0-36.0) 01/04/23 07:05 RDW 12.9 % (12.1-15.1) 01/04/23 07:05 Plt Count 244 10^3/cmm (130-400) 01/04/23 07:05 MPV 9.2 fL (7.4-10.4) 01/04/23 07:05 Neut % (Auto) 62.2 % 01/04/23 07:05 Lymph % (Auto) 21.7 % 01/04/23 07:05 [place] % (Auto) 6.4 % 01/04/23 07:05 Eos % (Auto) 7.5 % 01/04/23 07:05 Baso % (Auto) 0.9 % 01/04/23 07:05 Neut # (Auto) 6.95 10^3/uL (1.8-7.7) 01/04/23 07:05 Lymph # (Auto) 2.4 10^3/uL (0.8-4.8) 01/04/23 07:05 [place] # (Auto) 0.7 10^3/uL (0.2-0.9) 01/04/23 07:05 Eos # (Auto) 0.8 10^3/uL (0.0-0.8) 01/04/23 07:05 Baso # (Auto) 0.1 10^3/uL (0.0-0.1) 01/04/23 07:05 Nucleated RBC % (auto) 0 % 01/04/23 07:05 Nucleated RBCs # 0.0 /100WBC 01/04/23 07:05 Sodium 137 mmol/L (136-145) 01/04/23 07:05 Potassium 4.1 mmol/L (3.5-5.1) 01/04/23 07:05 Chloride 102 mmol/L (98-107) 01/04/23 07:05 Carbon Dioxide 22 mmol/L (22-29) 01/04/23 07:05 Anion Gap 17.1 (5-19) 01/04/23 07:05 BUN 22 mg/dL (8-23) 01/04/23 07:05 Creatinine 1.0 mg/dL (0.7-1.2) 01/04/23 07:05 GFR Calculation 74.1 mL/min (90-130) L 01/04/23 07:05 Glucose 207 mg/dL (65-115) H 01/04/23 07:05 POC Glucose 163 mg/dL (70-110) H 01/05/23 06:39 Calculated Osmolality 293 mOsm/kg (285-295) 01/04/23 07:05 Calcium 9.0 mg/dL (8.5-10.5) 01/04/23 07:05 Urine Color Yellow (Yellow) 01/04/23 06:46 Urine Appearance Clear (CLEAR) 01/04/23 06:46 Urine pH 5 (5-7) 01/04/23 06:46 Ur Specific [place] 1.020 (1.005-1.030) 01/04/23 06:46 Urine Protein Trace (Negative) 01/04/23 06:46 Urine Glucose (UA) Norm (Normal) 01/04/23 06:46 Urine Ketones Negative (Negative) 01/04/23 06:46 Urine Blood Neg (Negative) 01/04/23 06:46 Urine Nitrate Negative (Negative) 01/04/23 06:46 Urine Bilirubin Neg (Negative) 01/04/23 06:46 Urine Urobilinogen Norm mg/dL (Negative) 01/04/23 06:46 Ur Leukocyte Esterase Negative (Negative) 01/04/23 06:46 Urine RBC 0-4 /hpf (0-2) H 01/04/23 06:46 Urine WBC 0-4 /hpf (0-5) H 01/04/23 06:46 Ur Squamous Epith Cells 0-4 /hpf (0-5) H 01/04/23 06:46 Amorphous Sediment Not Reportable 01/04/23 06:46 Urine Bacteria Trace /hpf (NONE) 01/04/23 06:46 Procedures Performed Single-lead AICD implantation on January 04, 2023. Vitals Last Vital Signs Temp 97.8 F 01/05/23 04:00 Pulse 81 01/05/23 04:00 Resp 17 01/05/23 04:00 BP 127/77 01/05/23 04:00 Pulse Ox 97 01/05/23 04:00 O2 Del Method 01/05/23 04:00 Discharge Plan Discharge Patient Disposition: Home Condition: Stable Prescriptions: New hydrocodone-acetaminophen 5-325 mg Tablet 1 tab PO Q6H PRN (Reason: Moderate Pain) Qty: 16 0RF sulfamethoxazole-trimethoprim 800-160 mg Tablet 1 tab PO BID Qty: 6 0RF Continued aspirin 81 mg tablet,delayed release (DR/EC) 81 mg PO DAILY prenat.vits,ethan,ohf-pfhd-fbbms Tablet 1 tab PO DAILY Qty: 90 3RF atorvastatin 40 mg tablet 40 mg PO BEDTIME Qty: 90 3RF clopidogrel 75 mg tablet 75 mg PO DAILY Qty: 90 3RF lisinopril 5 mg tablet 5 mg PO DAILY Qty: 90 2RF Lasix 20 mg tablet 20 mg PO QAM Qty: 90 3RF metoprolol tartrate 25 mg tablet 50 mg PO BID Qty: 360 3RF potassium chloride 10 mEq capsule, extended release See Rx Instructions .ROUTE .COMPLEX Qty: 90 3RF Rx Instructions: 10 mEq orally every other day If you happen to miss lasix dose, do not take potassium that day. glimepiride 2 mg tablet See Rx Instructions .ROUTE .COMPLEX Qty: 180 0RF Dose Instruction: Take 1 tablet by mouth twice daily Rx Instructions: Take 1 tablet by mouth twice daily metformin 1,000 mg tablet See Rx Instructions .ROUTE .COMPLEX Qty: 60 0RF Dose Instruction: Take 1 tablet by mouth twice daily Rx Instructions: Take 1 tablet by mouth twice daily Discharge Orders: Discharge Order (Routine); Ordered 01/05/23 Ordered By: Codey Leo Referrals: [facility] [Provider Group] - 1 week (Pacemaker clinic) Discharge Diet: Usual diet Discharge Activity: Limit activity as instructed Patient Instructions: Opioid Safety Activity Restrictions/Additional Instructions: No heavy lifting or pulling with the left upper extremity for 2 weeks Do not raise left hand above eye level for 2 weeks May remove bandage in 2 days. May begin showers in 3 days. No swimming or tub baths x2 weeks May recover incision as needed to prevent irritation from clothing or irritation from seatbelt Report any fever, redness, drainage, increasing pain, or swelling in the region. Take prescribed antibiotics until completed. Discharge Attestations Time Spent in Discharge Care*: less than 30 min Specific Discharge Activities: educating patient and documenting/other paperwork Status at Discharge: Cognitive status at discharge: cognitively intact , Behavioral status at discharge: cooperative , Functional status at discharge: independent ambulation , Overall status at discharge: patient is back to baseline Quality Metrics Clinical Quality Measures [ No reported AMI, CVA or VTE this stay] Coding Level of Care Code Acute Code for Chg Roberto
[2023-01-05] MEDS: FUROsemide 20 mg Tablet PO (07:36)
[2023-01-05 07:40] VITALS: PULSE 90
[2023-01-05 08:22] VITALS: BP 144/77; PULSE 84; RESP 18; TEMP 36.8; O2SAT 97
[2023-01-05] MEDS: pantoprazole DR 40 mg Tablet PO (08:29)
[2023-01-05] MEDS: metoprolol tartrate 25 mg Tablet 50 MG PO (08:29)
[2023-01-05] MEDS: lisinopril 5 mg Tablet PO (08:29)
[2023-01-05] MEDS: sulfamethoxazole-trimeth DS 160-800 mg Tablet 1 TAB PO (08:29)
[2023-01-05] MEDS: insulin lispro 100 unit/1 mL SUBCUT (08:32)
--- NOTE | 2023-01-05 10:15 | PC.CHAP ---
Pastoral Care Encounter/Spiritual Assessment Type of Contact [] Declined curatorial specialist visit [] Patient/Family/Request visit [] Outpatient visit [] Follow-up visit [] Physician referral [] Code/Alert [x] Routine visit [] Staff referral [] Actively dying [x] Patient sleeping [] Family support [] [] Out of room [] Palliative care [] [] Receiving care in room [] Pre-surgical visit [] Trauma [] Long length of stay [] ICU visit [] Other: Relational/Emotional Strength [] Patient feels connected with others/family/visitors/staff [] Distress [] Loneliness/isolation [] Abandonment Spirituality of Patient [] Person of Nita [] Attends Buddhist of their Nita [] Believes in Prayer [] Reads Bible or Zoroastrianism materials [] There are Spiritual issues to be addressed Car Chaser Interventions [] Prayer [] Active listening [] Non-anxious presence [] Spiritual/emotional support [] Crisis/trauma care [] Spiritual counseling [] Bereavement support [] Provided bereavement packet [] Provided Bible/devotional materials [] Provided toy/stuffed animal, coloring book to patient or family member [] Provided Communion [] Anointing/[place] [] Salvation [] Completed spiritual assessment [] Other: Impact on Illness or Injury [] Angry [] Fearful [] Anxious [] Often cries [] Exhaustion [] Unable to work [] Unable to attend mormonism [] Unable to walk/stand [] Unable to read [] Unable to drive [] Unable to eat/drink [] Unable to sleep [] Unable to be with family [] Patient intubated [] Other: Summary Time spent with patient
[2023-01-05 10:37] VITALS: BP 144/77; PULSE 84; RESP 18; TEMP 36.8; O2SAT 97
== END 2023-01-05 11:30 | disposition home or self-care (01) ==
LOC: MEDSURG 12:07
PROVIDERS: Admitting Provider Thoracic Surgery (Cardiothoracic Vascular Surgery); PCP Family Medicine; Visit Provider Thoracic Surgery (Cardiothoracic Vascular Surgery)
PROC: 0JH608Z Insertion of Defibrillator Generator into Chest Subcutaneous Tissue and Fascia, Open Approach (ICD-10-PCS; CPT 33249; principal; 2023-01-04 08:10)
DX: I25.5 Ischemic cardiomyopathy (principal); I11.0 Hypertensive heart disease with heart failure; I50.23 Acute on chronic systolic (congestive) heart failure; I25.10 Atherosclerotic heart disease of native coronary artery without angina pectoris; I25.2 Old myocardial infarction; Z79.82 Long term (current) use of aspirin; Z79.84 Long term (current) use of oral hypoglycemic drugs; Z86.14 Personal history of Methicillin resistant Staphylococcus aureus infection; E11.9 Type 2 diabetes mellitus without complications; Z87.891 Personal history of nicotine dependence
CPT/HCPCS: 33270; 36415; 36416; 71045; 76000; 80048; 81001; 82962; 85025; 96372; C1722; G0378; J1815; J2704; J3010; J3370; J7030

== ENCOUNTER → 2023-01-14 07:55 | Outpatient (BNVA) | payer MEDICARE, SELFPAY | PROVIDERS: PCP Family Medicine; Visit Provider Nurse Practitioner Family | DX: Z45.018 Encounter for adjustment and management of other part of cardiac pacemaker (principal); Z95.810 Presence of automatic (implantable) cardiac defibrillator | CPT/HCPCS: 99214 ==

== ENCOUNTER → 2023-02-03 12:50 | Outpatient (BNVA) | payer MEDICARE, SELFPAY | PROVIDERS: PCP Family Medicine; Visit Provider Nurse Practitioner Family | DX: I25.10 Atherosclerotic heart disease of native coronary artery without angina pectoris (principal); Z95.810 Presence of automatic (implantable) cardiac defibrillator; I11.0 Hypertensive heart disease with heart failure; I50.20 Unspecified systolic (congestive) heart failure; I25.5 Ischemic cardiomyopathy; Z87.891 Personal history of nicotine dependence; Z79.82 Long term (current) use of aspirin | CPT/HCPCS: 99214 ==

== ENCOUNTER → 2023-07-07 09:48 | Outpatient (BNVA) | payer MEDICARE, SELFPAY | PROVIDERS: PCP Family Medicine; Visit Provider Internal Medicine | DX: Z45.02 Encounter for adjustment and management of automatic implantable cardiac defibrillator (principal) | CPT/HCPCS: 93296 ==

== ENCOUNTER → 2023-08-11 14:23 | Outpatient (BNVA) | payer MEDICARE, SELFPAY | PROVIDERS: PCP Family Medicine; Visit Provider Internal Medicine | DX: I11.0 Hypertensive heart disease with heart failure (principal); I50.20 Unspecified systolic (congestive) heart failure; E11.59 Type 2 diabetes mellitus with other circulatory complications; Z79.84 Long term (current) use of oral hypoglycemic drugs; I25.5 Ischemic cardiomyopathy; I25.10 Atherosclerotic heart disease of native coronary artery without angina pectoris; Z87.891 Personal history of nicotine dependence | CPT/HCPCS: 99214 ==

== ENCOUNTER → 2023-10-19 09:11 | Outpatient (BNVA) | payer MEDICARE, SELFPAY | PROVIDERS: PCP Family Medicine; Visit Provider Nurse Practitioner Family | DX: E11.9 Type 2 diabetes mellitus without complications (principal); I10 Essential (primary) hypertension; E55.9 Vitamin D deficiency, unspecified; I25.10 Atherosclerotic heart disease of native coronary artery without angina pectoris; Z12.5 Encounter for screening for malignant neoplasm of prostate | CPT/HCPCS: 80053; 80061; 81003; 82306; 83036; 83735; 84100; 84443; 85025; G0103 ==

== ENCOUNTER → 2024-01-11 15:55 | Outpatient (BNVA) | payer MEDICARE, SELFPAY | PROVIDERS: PCP Family Medicine; Visit Provider Internal Medicine | DX: Z45.02 Encounter for adjustment and management of automatic implantable cardiac defibrillator (principal) | CPT/HCPCS: 93296 ==

== ENCOUNTER → 2024-05-10 14:10 | Outpatient (BNVA) | payer MEDICARE, SELFPAY | PROVIDERS: PCP Family Medicine; Visit Provider Internal Medicine | DX: E11.59 Type 2 diabetes mellitus with other circulatory complications (principal); I10 Essential (primary) hypertension; I25.5 Ischemic cardiomyopathy; I25.10 Atherosclerotic heart disease of native coronary artery without angina pectoris; Z79.84 Long term (current) use of oral hypoglycemic drugs | CPT/HCPCS: 99214 ==

== ENCOUNTER → 2025-02-15 09:00 | Outpatient (BNVA) | payer MEDICARE, SELFPAY | PROVIDERS: PCP Family Medicine; Visit Provider Internal Medicine | DX: E11.59 Type 2 diabetes mellitus with other circulatory complications (principal); I10 Essential (primary) hypertension; I25.5 Ischemic cardiomyopathy; I25.10 Atherosclerotic heart disease of native coronary artery without angina pectoris | CPT/HCPCS: 99213 ==

== ENCOUNTER → 2025-05-21 09:48 | Outpatient (BNVA) | payer MEDICARE, SELFPAY | PROVIDERS: PCP Family Medicine; Visit Provider Nurse Practitioner Family | DX: Z12.5 Encounter for screening for malignant neoplasm of prostate (principal); I10 Essential (primary) hypertension; E11.59 Type 2 diabetes mellitus with other circulatory complications | CPT/HCPCS: 80053; 80061; 81003; 82306; 83036; 84443; 85025; G0103 ==

== ENCOUNTER → 2025-06-13 08:43 | Outpatient (BNVA) | payer MEDICARE, SELFPAY | PROVIDERS: PCP Nurse Practitioner Family; Visit Provider Internal Medicine | DX: Z45.02 Encounter for adjustment and management of automatic implantable cardiac defibrillator (principal) | CPT/HCPCS: 93296 ==

== ENCOUNTER → 2025-08-21 12:51 | Outpatient (BNVA) | payer MEDICARE, SELFPAY | PROVIDERS: PCP Nurse Practitioner Family; Visit Provider Internal Medicine | DX: I25.10 Atherosclerotic heart disease of native coronary artery without angina pectoris (principal); I10 Essential (primary) hypertension; I25.5 Ischemic cardiomyopathy; Z95.810 Presence of automatic (implantable) cardiac defibrillator | CPT/HCPCS: 99214 ==

== ENCOUNTER → 2025-11-13 08:56 | Outpatient (BNVA) | payer MEDICARE, SELFPAY | PROVIDERS: PCP Nurse Practitioner Family; Visit Provider Nurse Practitioner Family | DX: I10 Essential (primary) hypertension (principal); E11.59 Type 2 diabetes mellitus with other circulatory complications; E55.9 Vitamin D deficiency, unspecified | CPT/HCPCS: 80053; 80061; 81003; 82306; 83036; 84443; 85025 ==

== ENCOUNTER → 2025-11-27 13:21 | Outpatient (BNVA) | payer MEDICARE, SELFPAY | PROVIDERS: PCP Nurse Practitioner Family; Visit Provider Internal Medicine | DX: Z45.02 Encounter for adjustment and management of automatic implantable cardiac defibrillator (principal) | CPT/HCPCS: 93296 ==